=== PATIENT | female | born 1995 | race Caucasian/White ===

== ENCOUNTER 2020-10-18 17:57 | Observation (INO) | payer OTHER, SELFPAY ==
--- NOTE | 2020-10-18 17:57 | OBADM ---
This patient, Martha Yeboah, admitted to the OB room [facility] for observation. Patient/family oriented to hospital policies and general routines including ID bracelet, bed and alarms, visiting hours, pain management, procedures, bathroom and other care routines, personal items, smoking policy, room service/diet, and visiting hours. Patient/Family are encouraged to report perceived risks to care and to ask questions if they do not understand what they are told or what they should do.
[2020-10-18 18:22] VITALS: BP 121/70; PULSE 84; RESP 20; TEMP 36.9
[2020-10-18 18:43] LABS: Add Urine Microscopic? YES; Appearance Urine Cloudy (Clear); Bacteria Urine Trace /hpf; Bilirubin Urine Negative (Negative); Blood Urine Negative (Negative); Color Urine Yellow (Yellow); Glucose Urine UA Negative (Negative); Ketones Urine 1+ mg/dL (Negative); Leukocyte Esterase Ur 2+ LEU/UL (NEGATIVE); Mucus Urine Heavy /lpf; Nitrate Urine Negative (Negative); Protein Urine 1+ mg/dL (Negative); Specific Grav Ur 1.028 (1.001-1.035); Squamous Epithelial Cell Urine Many /hpf (Few); Urobilinogen Urine Negative mg/dL (<2.0)
[2020-10-18] MEDS: FAMOTIDINE 20 MG/2 ML VIAL IV PUSH (18:55)
[2020-10-18] MEDS: ONDANSETRON INJ 4 MG/2 ML VIAL IV PUSH (18:56)
[2020-10-18] MEDS: DEXTROSE 5%/LACTATED RINGERS 1,000 ML 999 ML IV CONT (18:58)
[2020-10-18 19:08] LABS: Basophils Percent Auto 0.2 % (0.2-1.2); Eosinophils Absolute Auto 0.2 K/mm3 (0-0.3); Eosinophils Percent Auto 1.9 % (0-4.4); Hematocrit 34.7 % (37.0-47.0); Hemoglobin 11.6 g/dL (12.0-15.0); Immature Granulocyte Absolute 0.02 K/mm3 (0.00-0.031); Immature Granulocyte Percent A 0.2 % (0-0.5); Lymphocytes Absolute Auto 2.11 K/mm3 (0.9-3.2); Lymphocytes Percent Auto 24.6 % (18.3-44.2); Mean Corpuscular HGB Conc 33.4 g/dl (32-36); Mean Corpuscular Hemoglobin 28.4 pg (26-34); Mean Platelet Volume 9.9 fl (7.4-10.4); Monocytes Absolute Auto 0.5 K/mm3 (0.1-0.6); Monocytes Percent Auto 5.5 % (2.6-8.5); Neutrophils Absolute Auto 5.8 K/mm3 (1.3-6.7); Neutrophils Percent Auto 67.6 % (45.5-73.1); Platelet Count Result 280 k/mm3 (150-375); Red Blood Count 4.08 M/mm3 (4.2-5.4); White Blood Count 8.6 K/mm3 (4.5-10.0)
[2020-10-18 19:29] LABS: Alanine Aminotransferase 27 U/L (4-35); Albumin Level 4.1 g/dL (3.5-5.1); Alkaline Phosphatase 75 U/L (38-126); Anion Gap 6 mmol/L (8-16); Aspartate Amino Transferase 37 U/L (14-36); Bilirubin,Total 0.4 mg/dL (0.2-1.3); Blood Urea Nitrogen 9 mg/dL (7-17); Calcium 9.1 mg/dL (8.4-10.2); Carbon Dioxide 24 mmol/L (22-30); Chloride 106 mmol/L (98-107); Estimated Glomerular Filt Rate > 60; Glucose 93 mg/dL (65-105); Potassium 4.1 mmol/L (3.4-5.0); Sodium 136 mmol/L (137-145)
[2020-10-18 19:33] VITALS: BMI 31.6
[2020-10-18] MEDS: DEXTROSE 5%/LACTATED RINGERS 1,000 ML 200 ML IV CONT (20:03)
--- NOTE | 2020-10-20 07:30 | PM.OBTRLD ---
OB - Triage/Final Diagnosis Visit Information Date of evaluation: 10/18/20 Reason for evaluation: threatened labor Comments/Additional reasons for admission: I have assessed the risk for this patient, Martha Angulo Obinna, and determined that she would benefit from observation care. Evaluation Laboratory results: Laboratory Tests 10/18/20 10/18/20 10/18/20 18:29 18:54 18:54 WBC 8.6 RBC 4.08 L Hgb 11.6 L Hct 34.7 L MCV 85.0 MCH 28.4 MCHC 33.4 RDW 14.0 Plt Count 280 MPV 9.9 Immature Gran % (Auto) 0.2 Neut % (Auto) 67.6 Lymph % (Auto) 24.6 [place] % (Auto) 5.5 Eos % (Auto) 1.9 Baso % (Auto) 0.2 Lymph # (Auto) 2.11 [place] # (Auto) 0.5 Eos # (Auto) 0.2 Baso # (Auto) 0.0 Abs Immat Gran (auto) 0.02 Absolute Neuts (auto) 5.8 Absolute Nucleated RBC 0.0 Nucleated RBC % 0.0 Sodium 136 L Potassium 4.1 Chloride 106 Carbon Dioxide 24 Anion Gap 6 L BUN 9 Creatinine 0.50 L Estim Creat Clear Calc Not Reportable Estimated GFR > 60 Glucose 93 Calcium 9.1 Total Bilirubin 0.4 AST 37 H ALT 27 Alkaline Phosphatase 75 Total Protein 8.0 Albumin 4.1 Urine Color Yellow Urine Appearance Cloudy H Urine pH 5.0 Ur Specific [place] 1.028 Urine Protein 1+ H Urine Glucose (UA) Negative Urine Ketones 1+ H Ur Blood (Man) Negative Urine Nitrate Negative Urine Bilirubin Negative Urine Urobilinogen Negative Ur Leukocyte Esterase 2+ H Urine RBC 3-5 H Urine WBC 7-9 H Ur Squamous Epith Cells Many H Urine Bacteria Trace Urine Mucus Heavy H
== END 2020-10-18 22:14 | disposition home or self-care (01) ==
PROVIDERS: Advanced Practice Midwife; Admitting Provider Obstetrics & Gynecology; Visit Provider Obstetrics & Gynecology
DX: O21.0 Mild hyperemesis gravidarum (principal); Z3A.09 9 weeks gestation of pregnancy; O47.9 False labor, unspecified
CPT/HCPCS: 36415; 80053; 81001; 85025; 96361; 96374; 96375; G0378; G0379; J0131; J2405; J7121

== ENCOUNTER 2020-11-08 10:12 | Outpatient (CLI) | payer OTHER, SELFPAY ==
--- NOTE | ~2020-11-08 | US_ITS ---
EXAMINATION: US OB <= 14 weeks fetus DATE: 11/08/2020 11:13 INDICATION: 13 weeks . Vaginal bleeding. TECHNIQUE: Real-time transabdominal obstetric ultrasound. FINDINGS: No prior studies for comparison. There is a single living fetus in variable presentation. The placenta is anterior and low-lying. cardiac activity and movement is noted with a heart rate of 149 beats per minute. T he amniotic fluid volume is subjectively normal. The following biometric data were obtained: BPD: 22mm corresponds to gestational age 13 weeks 4 days. Head circumference: 81mm corresponds to gestational age 13 weeks 3 days. Abdominal circumference: 68mm corresponds to gestational age 13 weeks 3 days. Femur length: 11mm corresponds to gestational age 13 weeks 2 days. Estimated weight: 75grams +/- 11grams.] Right ovary measures 2.5 x 2.3 x 2.2 cm and contains a 2 cm cyst. Left ovary is unremarkable. IMPRESSION: 1. Single living intrauterine in variable presentation with an estimated gestational age o f 13 weeks 3 days by current ultrasound. EDC of 05/13/2021. 2. Low-lying anterior placenta. Recommend follow-up ultrasound to ensure placental migration. Reviewed, dictated and finalized at location A. IMPRESSION: 1. Single living intrauterine in variable presentation with an estim ated gestational age of 13 weeks 3 days by current ultrasound. EDC of 05/13/2021 . 2. Low-lying anterior placenta. Recommend follow-up ultrasound to ensure placen jerry migration.
[2020-11-08 11:14] VITALS: BP 137/70; PULSE 71
[2020-11-08 11:16] VITALS: RESP 16; TEMP 36.7
--- NOTE | 2020-11-08 11:16 | PC.NURSE ---
Jencelso came to our unit stating that she had been sent over from [facility] office for an ultrasound and bloodwork. Spoke with Dr. Mcguire regarding orders, orders sent from triage nurse for outpatient labs and US. Will send patient for US now and send to lab for bloodwork.
== END 2020-11-08 11:15 | disposition home or self-care (01) ==
LOC: ANHOBOP 11:09 → ANHOBPP 11:10
PROVIDERS: Visit Provider Obstetrics & Gynecology Gynecology
DX: O20.8 Other hemorrhage in early pregnancy (principal); O44.41 Low lying placenta NOS or without hemorrhage, first trimester; Z3A.13 13 weeks gestation of pregnancy; N83.201 Unspecified ovarian cyst, right side
CPT/HCPCS: 76801; 99199

== ENCOUNTER 2020-11-08 11:30 | Outpatient (CLI) | payer OTHER, SELFPAY ==
[2020-11-08 12:14] LABS: Basophils Percent Auto 0.3 % (0.2-1.2); Eosinophils Absolute Auto 0.2 K/mm3 (0-0.3); Eosinophils Percent Auto 2.8 % (0-4.4); Hematocrit 32.7 % (37.0-47.0); Hemoglobin 10.8 g/dL (12.0-15.0); Immature Granulocyte Absolute 0.02 K/mm3 (0.00-0.031); Immature Granulocyte Percent A 0.3 % (0-0.5); Lymphocytes Absolute Auto 2.08 K/mm3 (0.9-3.2); Lymphocytes Percent Auto 26.9 % (18.3-44.2); Mean Corpuscular Hemoglobin 27.8 pg (26-34); Mean Corpuscular Volume 84.1 fl (80-100); Monocytes Absolute Auto 0.5 K/mm3 (0.1-0.6); Monocytes Percent Auto 6.3 % (2.6-8.5); Neutrophils Absolute Auto 4.9 K/mm3 (1.3-6.7); Neutrophils Percent Auto 63.4 % (45.5-73.1); Platelet Count Result 279 k/mm3 (150-375); Red Blood Count 3.89 M/mm3 (4.2-5.4); Red Cell Distribution Width 14.3 % (11.5-14.5); White Blood Count 7.7 K/mm3 (4.5-10.0)
[2020-11-08 12:30] LABS: Alanine Aminotransferase 22 U/L (4-35); Albumin Level 3.9 g/dL (3.5-5.1); Alkaline Phosphatase 82 U/L (38-126); Anion Gap 9 mmol/L (8-16); Aspartate Amino Transferase 25 U/L (14-36); Bilirubin,Total < 0.1 mg/dL (0.2-1.3); Blood Urea Nitrogen 8 mg/dL (7-17); Calcium 9.5 mg/dL (8.4-10.2); Carbon Dioxide 22 mmol/L (22-30); Chloride 107 mmol/L (98-107); Estimated Glomerular Filt Rate > 60; Glucose 91 mg/dL (65-105); Potassium 3.9 mmol/L (3.4-5.0); Sodium 138 mmol/L (137-145); Uric Acid 4.6 mg/dL (2.5-7.5)
[2020-11-08 13:21] LABS: Hemoglobin A1C 5.1 % (<5.7)
[2020-11-08 13:33] LABS: HIV 1/2 Ab P24 Ag Result Negative (Negative); Hepatitis B Surface Antigen Negative (Negative); Rubella IgG Antibody 54.6 IU/ML
[2020-11-09 07:09] LABS: Rapid Plasma Reagin Non-Reactive (NonReactive)
== END 2020-11-08 11:31 ==
PROVIDERS: Referring Provider Nurse Practitioner; Visit Provider Obstetrics & Gynecology Gynecology
DX: O09.299 Supervision of pregnancy with other poor reproductive or obstetric history, unspecified trimester (principal); O36.0190 Maternal care for anti-D [Rh] antibodies, unspecified trimester, not applicable or unspecified; Z11.4 Encounter for screening for human immunodeficiency virus [HIV]; Z3A.00 Weeks of gestation of pregnancy not specified
CPT/HCPCS: 36415; 76801; 80053; 82306; 83036; 84550; 85025; 85730; 86592; 86703; 86762; 86850; 86900; 86901; 87340; 99199; G0432

== ENCOUNTER 2020-12-07 21:22 | Observation (INO) | payer OTHER, SELFPAY ==
[2020-12-07] VITALS (10 sets, daily range): BP systolic 95–129; BP diastolic 47–78; PULSE 66–94; BMI 31.1
[2020-12-07 21:52] LABS: Add Urine Microscopic? YES; Appearance Urine Cloudy (Clear); Bacteria Urine Trace /hpf; Bilirubin Urine Negative (Negative); Blood Urine Negative (Negative); Color Urine Yellow (Yellow); Glucose Urine UA Negative (Negative); Ketones Urine 1+ mg/dL (Negative); Leukocyte Esterase Ur 2+ LEU/UL (Negative); Mucus Urine Rare /lpf; Nitrate Urine Negative (Negative); Protein Urine 1+ mg/dL (Negative); Specific Grav Ur 1.021 (1.001-1.035); Squamous Epithelial Cell Urine Moderate /hpf (Few); Urobilinogen Urine Negative mg/dL (<2.0); WBC Urine 16-20 /hpf
--- NOTE | 2020-12-07 22:02 | PC.NURSE ---
091- spoke with Dr. Mcguire- informed of pt admission. pt c/o ELIZONDO, dizziness, lower abd pain, lower back pain, urinary frequency. pt stated that she has take fiorcet twice today for the headache and hasn't gotten much relief. UA results reviewed. orders received for Ibuprofen 600mg and PO fluids. will continue to monitor and call if concerns/questions.
--- NOTE | 2020-12-07 22:08 | LDADM ---
This patient, Martha Yeboah, was admitted to [facility] on 12/07/20 at 21:22. Plans for labor, pain management and were discussed with patient. Patient/family oriented to hospital policies and general routines including ID bracelet, bed and alarms, visiting hours, pain management, procedures, bathroom and other care routines, personal items, smoking policy, room service/diet and guest tray routines, infant security routines, and visiting hours. Patient/Family are encouraged to report perceived risks to care and to ask questions if they do not understand what they are told or what they should do. See OBIX for further documentation.
[2020-12-07] MEDS: IBUPROFEN 600 MG TABLET PO (22:11)
--- NOTE | 2020-12-07 23:07 | PC.NURSE ---
0425- spoke with Dr. Mcguire- pt states that her headache is slightly better with the ibuprofen. pt still complaining of dizziness- describes it like she's rocking on a boat. order received for meclizine 50mg once. if better after medicine, may d/c home with order to case picker OTC meclizine.
[2020-12-07] MEDS: MECLIZINE HCL 25 MG TABLET 50 MG PO (23:19)
--- NOTE | 2020-12-07 23:47 | PC.NURSE ---
pt states that she is feeling better after the ibuprofen and meclizine and she is ready to d/c home. instructions on increasing oral fluids and f/u with Dr. Mcguire given.
--- NOTE | 2020-12-11 09:57 | P.PNOB_ITS ---
OB - Triage/Final Diagnosis Visit Information Reason for evaluation: other (cramping) Comments/Additional reasons for admission: I have assessed the risk for this patient, Martha Kev Yeboah, and determined that she would benefit from observation care. Evaluation Laboratory results: Laboratory Tests 12/07/20 21:40 Urine Color Yellow Urine Appearance Cloudy H Urine pH 5.0 Ur Specific [place] 1.021 Urine Protein 1+ H Urine Glucose (UA) Negative Urine Ketones 1+ H Ur Blood (Man) Negative Urine Nitrate Negative Urine Bilirubin Negative Urine Urobilinogen Negative Leukocyte Esterase Rfl 2+ H Urine RBC 6-10 H Urine WBC 16-20 H Ur Squamous Epith Cells Moderate H Urine Bacteria Trace Urine Mucus Rare
== END 2020-12-07 23:57 | disposition home or self-care (01) ==
PROVIDERS: Admitting Provider Obstetrics & Gynecology Gynecology; Visit Provider Obstetrics & Gynecology Gynecology
DX: O26.892 Other specified pregnancy related conditions, second trimester (principal); R10.9 Unspecified abdominal pain; Z3A.17 17 weeks gestation of pregnancy
CPT/HCPCS: 81001; 87086; 87088; A9270; G0378; G0379

== ENCOUNTER 2020-12-10 10:32 | Outpatient (CLI) | payer OTHER, SELFPAY ==
--- NOTE | ~2020-12-10 | US_ITS ---
EXAMINATION: US OB /maternal detail DATE: 12/10/2020 11:20 INDICATION: survey TECHNIQUE: Multiple obstetric sonographic images performed. FINDINGS: Ultrasound dated 11/08/2020 There is a single living fetus in vertex presentation. The placenta is anterior without placenta pre via. Amniotic fluid volume is normal. cardiac activity and movement is noted with a heart rate of 154 beats per minute. The following anatomy was identified as normal: 4 chamber heart 3 vessel cord cord insertion kidneys urinary bladder stomach spine diaphragm ventricles cisterna magna cerebellum The lip and nose are not visualized. The following biometric data were obtained: BPD: 38mm corresponds to gestational age 17 weeks 5 days. Head circumference: 146 mm corresponds to gestational age 17 weeks 5 days. Abdominal circumference: 119 mm corresponds to gestational age 17 weeks 4 days. Femur length: 26 mm corresponds to gestational age 17 weeks 5 days. Head circumference to abdominal circumference ratio: 1.23 (normal range for expected gestational age is 1.08-1.28). Estimated weight: 205 grams +/- 31 grams using Hadlock method. IMPRESSION: 1: Single living intrauterine with an estimated gestational age of 18weeks 0days by initial ultrasound measurements, with an EDC of 05/13/2021 in vertex presentation. 2. Normal survey. Reviewed, dictated and finalized at location A. IMPRESSION: 1: Single living intrauterine with an estimated gestational age of 18 weeks 0days by initial ultrasound measurements, with an EDC of 05/13/2021 in taina taylor presentation. 2. Normal survey.
== END 2020-12-10 10:33 | disposition home or self-care (01) ==
PROVIDERS: Visit Provider Obstetrics & Gynecology Gynecology
DX: O44.12 Complete placenta previa with hemorrhage, second trimester (principal); Z3A.18 18 weeks gestation of pregnancy
CPT/HCPCS: 76805

== ENCOUNTER 2020-12-19 12:23 | Emergency (ER) | payer OTHER, SELFPAY ==
[2020-12-19] VITALS (7 sets, daily range): BP systolic 106–122; BP diastolic 56–78; PULSE 76–103; RESP 16–23; TEMP 36.6; O2SAT 98–100
--- NOTE | 2020-12-19 12:34 | ECG_ITS ---
Measurements Intervals [place] Rate: 80 P: 30 ND: 170 QRS: 47 QRSD: 81 T: 35 QT: 355 QTc: 411 Interpretive Statements SINUS RHYTHM BASELINE ARTIFACT- V5 NORMAL ECG Electronically Signed On 12-19-2020 13:24:36 CDT by Flynn Islas D.O.
[2020-12-19 13:19] LABS: Basophils Percent Auto 0.3 % (0.2-1.2); Eosinophils Absolute Auto 0.2 K/mm3 (0-0.3); Eosinophils Percent Auto 1.6 % (0-4.4); Hematocrit 31.3 % (37.0-47.0); Hemoglobin 10.2 g/dL (12.0-15.0); Immature Granulocyte Absolute 0.04 K/mm3 (0.00-0.031); Immature Granulocyte Percent A 0.4 % (0-0.5); Immature Platelet Fraction Pct 2.2 % (0.9-11.2); Lymphocytes Absolute Auto 1.77 K/mm3 (0.9-3.2); Lymphocytes Percent Auto 18.1 % (18.3-44.2); Mean Corpuscular HGB Conc 32.6 g/dl (32-36); Mean Corpuscular Hemoglobin 28.6 pg (26-34); Mean Corpuscular Volume 87.7 fl (80-100); Mean Platelet Volume 9.6 fl (7.4-10.4); Monocytes Absolute Auto 0.6 K/mm3 (0.1-0.6); Monocytes Percent Auto 5.6 % (2.6-8.5); Neutrophils Absolute Auto 7.2 K/mm3 (1.3-6.7); Platelet Count Result 282 k/mm3 (150-375); Red Blood Count 3.57 M/mm3 (4.2-5.4); Red Cell Distribution Width 14.6 % (11.5-14.5); White Blood Count 9.8 K/mm3 (4.5-10.0)
[2020-12-19 13:27] LABS: Anion Gap 4 mmol/L (8-16); Blood Urea Nitrogen 7 mg/dL (7-17); Calcium 9.4 mg/dL (8.4-10.2); Carbon Dioxide 26 mmol/L (22-30); Chloride 107 mmol/L (98-107); Estimated CRCL calculation 202 ml/min; Estimated Glomerular Filt Rate > 60; Glucose 85 mg/dL (65-105); Potassium 3.8 mmol/L (3.4-5.0); Sodium 137 mmol/L (137-145)
[2020-12-19] MEDS: SODIUM CHLORIDE 0.9% IV 1,000 ML 999 ML IV CONT (13:47)
--- NOTE | 2020-12-19 14:26 | ED.GENADULT ---
HPI - General Adult General Chief complaint: Syncope Stated complaint: headache, syncope, 19 wks Time Seen by Provider: 12/19/20 12:39 History of Present Illness HPI narrative: Patient is a 25-year-old female who presents ER with dizziness and syncope. Reports this is been a recurrent issue since June 2020. She reports she then became and they have been unable to work it up. She sees Dr. Shaver. Patient had an episode of dizziness yesterday while at [facility] working and was seen in the ER. She was diagnosed with a UTI and prescribed antibiotics and then given some IV fluids. She reports she had recurrence of symptoms today while sitting in a car. No racing the heart or chest pain. Reports she gets hot and flushed when this happens. Related Data Home Medications Medication Instructions Recorded Confirmed 1 tablet PO DAILY 10/18/20 10/18/20 Unisom (diphenhydramine) 1 tablet PO HS PRN 10/18/20 10/18/20 sertraline [Zoloft] 50 mg PO DAILY 10/18/20 10/18/20 vitamin B6-vitamin E-magnesium 1 tablet PO HS PRN 10/18/20 10/18/20 dextroamphetamine-amphetamine 12/19/20 12/19/20 Allergies Allergy/AdvReac Type Severity Reaction Status Date / Time No Known Allergies Allergy Verified 12/19/20 13:12 Review of Systems Review of Systems: All systems reviewed & are unremarkable except as noted in HPI and below Constitutional: Constitutional: Denies chills, Denies fever(s) and Denies weakness Cardiovascular: Cardiovascular: Denies chest pain, Denies rapid heart rate and Denies radiating jaw, neck or arm pain Genitourinary: Genitourinary: Denies nocturia and Denies dysuria Neurologic: Reports syncope, Reports headache(s) (Chronic), Denies focal weakness and Denies numbness PMFSH Past Medical History Medical History (Updated 12/19/20 @ 15:53 by Daryn Hayes MD) ADHD GERD (gastroesophageal reflux disease) Surgical History Surgical History (Updated 12/19/20 @ 14:28 by Daryn Hayes MD) No pertinent past surgical history Social History Social History (Updated 12/19/20 @ 14:28 by Daryn Hayes MD) Gender identity (if verbalized by the patient): Female Exam Narrative: Exam Narrative: GENERAL: Well-appearing, well-nourished, and in no acute distress. HEAD: Normocephalic, atraumatic. EYES: PERRL and EOMI. ENT: TMs normal bilaterally. CHEST: Clear to auscultation. No respiratory distress. HEART: Regular rate and rhythm. Normal peripheral pulses. ABDOMEN: Soft, nontender, nondistended. EXTREMITIES: Normal range of motion. No edema. NEURO: Alert and oriented x3. PSYCH: Normal mood and affect. Course Course Emergency Course: Unremarkable evaluation. Encouraged to continue antibiotics at home. Follow-up with her client solutions specialist. May require outpatient Holter monitor, but she does seem to be orthostatic as her heart rate elevates significantly. Vital Signs Vital signs: Vital Signs Temperature 97.8 F 12/19/20 12:34 Pulse Rate 80 12/19/20 12:34 Respiratory Rate 23 H 12/19/20 12:34 Blood Pressure 117/68 12/19/20 12:34 Pulse Oximetry 100 12/19/20 12:34 Temperature 97.8 F 12/19/20 12:34 Pulse Rate 82 12/19/20 14:56 Respiratory Rate 18 12/19/20 14:56 Blood Pressure 110/73 12/19/20 14:56 Pulse Oximetry 98 12/19/20 14:56 Medical Decision Making Vital Signs Vital Signs: Vital Signs Temperature 97.8 F 12/19/20 12:34 Pulse Rate 80 12/19/20 12:34 Respiratory Rate 23 H 12/19/20 12:34 Blood Pressure 117/68 12/19/20 12:34 Pulse Oximetry 100 12/19/20 12:34 Temperature 97.8 F 12/19/20 12:34 Pulse Rate 82 12/19/20 14:56 Respiratory Rate 18 12/19/20 14:56 Blood Pressure 110/73 12/19/20 14:56 Pulse Oximetry 98 12/19/20 14:56 Lab Data Result diagrams: 12/19/20 13:09 12/19/20 13:09 Labs: Lab Results 12/19/20 12/19/20 Range/Units 13:09 13:09 WBC 9.8 (4.5-1
== END 2020-12-19 16:32 | disposition home or self-care (01) ==
PROVIDERS: Emergency Provider Emergency Medicine; PCP Obstetrics & Gynecology Gynecology
DX: R55 Syncope and collapse (principal); F90.9 Attention-deficit hyperactivity disorder, unspecified type; K21.9 Gastro-esophageal reflux disease without esophagitis
CPT/HCPCS: 36415; 80048; 81025; 85025; 85055; 93005; 96360; 99283; J7030

== ENCOUNTER 2021-01-04 10:09 | Observation (INO) | payer OTHER, SELFPAY ==
[2021-01-04 10:35] VITALS: BMI 31.8
--- NOTE | 2021-01-04 10:55 | PC.NURSE ---
Dr Mcguire notified of Adm C/O R side abd pain. Orders received for labs and an US if patient has NPO. If not NPO may schedule outpatient testing if WBC's are WNL.
[2021-01-04 11:29] LABS: Basophils Percent Auto 0.5 % (0.2-1.2); Eosinophils Absolute Auto 0.2 K/mm3 (0-0.3); Eosinophils Percent Auto 2.2 % (0-4.4); Hematocrit 30.2 % (37.0-47.0); Immature Granulocyte Absolute 0.05 K/mm3 (0.00-0.031); Immature Granulocyte Percent A 0.6 % (0-0.5); Lymphocytes Absolute Auto 1.94 K/mm3 (0.9-3.2); Lymphocytes Percent Auto 22.9 % (18.3-44.2); Mean Corpuscular HGB Conc 33.1 g/dl (32-36); Mean Corpuscular Hemoglobin 28.4 pg (26-34); Mean Corpuscular Volume 85.8 fl (80-100); Mean Platelet Volume 9.1 fl (7.4-10.4); Monocytes Absolute Auto 0.5 K/mm3 (0.1-0.6); Monocytes Percent Auto 5.8 % (2.6-8.5); Neutrophils Absolute Auto 5.8 K/mm3 (1.3-6.7); Platelet Count Result 266 k/mm3 (150-375); Red Blood Count 3.52 M/mm3 (4.2-5.4); Red Cell Distribution Width 14.6 % (11.5-14.5); White Blood Count 8.5 K/mm3 (4.5-10.0)
[2021-01-04 12:23] LABS: Alanine Aminotransferase 20 U/L (4-35); Albumin Level 3.6 g/dL (3.5-5.1); Alkaline Phosphatase 86 U/L (38-126); Anion Gap 4 mmol/L (8-16); Aspartate Amino Transferase 26 U/L (14-36); Bilirubin,Total < 0.1 mg/dL (0.2-1.3); Blood Urea Nitrogen 8 mg/dL (7-17); Calcium 8.9 mg/dL (8.4-10.2); Carbon Dioxide 25 mmol/L (22-30); Chloride 107 mmol/L (98-107); Estimated Glomerular Filt Rate > 60; Glucose 88 mg/dL (65-105); Potassium 4.1 mmol/L (3.4-5.0); Sodium 136 mmol/L (137-145)
--- NOTE | 2021-01-04 13:00 | PC.NURSE ---
Discussed pain level with patient. States that its sill just a dull ache and denies need for additional medication for pain.
--- NOTE | 2021-01-04 14:29 | PC.NURSE ---
Dr Mcguire on unit, discussed labs and US, will schedule US outpatient. OK to nd home.
--- NOTE | 2021-01-08 08:53 | P.PNOB_ITS ---
OB - Triage/Final Diagnosis Visit Information Comments/Additional reasons for admission: I have assessed the risk for this patient, Martha Yeboah, and determined that she would benefit from observation care. Evaluation Laboratory results: Laboratory Tests 01/04/21 01/04/21 11:21 11:21 WBC 8.5 RBC 3.52 L Hgb 10.0 L Hct 30.2 L MCV 85.8 MCH 28.4 MCHC 33.1 RDW 14.6 H Plt Count 266 MPV 9.1 Immature Gran % (Auto) 0.6 H Neut % (Auto) 68.0 Lymph % (Auto) 22.9 [place] % (Auto) 5.8 Eos % (Auto) 2.2 Baso % (Auto) 0.5 Lymph # (Auto) 1.94 [place] # (Auto) 0.5 Eos # (Auto) 0.2 Baso # (Auto) 0.0 Abs Immat Gran (auto) 0.05 H Absolute Neuts (auto) 5.8 Absolute Nucleated RBC 0.0 Nucleated RBC % 0.0 Sodium 136 L Potassium 4.1 Chloride 107 Carbon Dioxide 25 Anion Gap 4 L BUN 8 Creatinine 0.50 L Estim Creat Clear Calc Not Reportable Estimated GFR > 60 Glucose 88 Calcium 8.9 Total Bilirubin < 0.1 L AST 26 ALT 20 Alkaline Phosphatase 86 Total Protein 7.0 Albumin 3.6 Final Diagnosis (1) Right upper quadrant abdominal pain: Code(s): R10.11 - Right upper quadrant pain Status: Acute
== END 2021-01-04 13:26 | disposition home or self-care (01) ==
PROVIDERS: Admitting Provider Obstetrics & Gynecology Gynecology; PCP Nurse Practitioner Family; Visit Provider Obstetrics & Gynecology Gynecology
DX: O26.899 Other specified pregnancy related conditions, unspecified trimester (principal); R10.11 Right upper quadrant pain; Z3A.00 Weeks of gestation of pregnancy not specified
CPT/HCPCS: 36415; 80053; 85025; G0378; G0379

== ENCOUNTER 2021-01-05 09:24 | Outpatient (CLI) | payer OTHER, SELFPAY ==
--- NOTE | ~2021-01-05 | US_ITS ---
EXAMINATION: US_ABDRLQ_US DATE: 01/05/2021 11:10 INDICATION: Right lower quadrant abdominal pain. TECHNIQUE: Multiple grayscale and Doppler ultrasound images of the abdomen were obtained. COMPARISON: None FINDINGS: A survey of the right lower quadrant is unremarkable. The appendix is not identified. IMPRESSION: 1. Appendix not identified. If there is clinical concern for appendicitis, consider MRI. Reviewed, dictated and finalized at location A. IMPRESSION: 1. Appendix not identified. If there is clinical concern for appendicitis, cons ider MRI.
--- NOTE | ~2021-01-05 | US_ITS ---
EXAMINATION: US right upper quadrant DATE: 01/05/2021 11:10 INDICATION: Right abdominal pain. TECHNIQUE: Multiple grayscale and Doppler ultrasound images of the abdomen were obtained. COMPARISON: None FINDINGS: The visualized portions of the head and body of the pancreas are normal. There is diffuse h epatic steatosis. No liver surface nodularity. There is normal flow in main portal vein. Right kidney is normal. No right-sided hydronephrosis. The gallbladder is normal in size. No gallstones or gallbl adder wall thickening. There was no sonographic Castano sign. The common duct is normal and measures 2 mm. IMPRESSION: 1. Diffuse hepatic steatosis. Reviewed, dictated and finalized at location A.
== END 2021-01-05 09:25 | disposition home or self-care (01) ==
PROVIDERS: PCP Nurse Practitioner Family; Visit Provider Obstetrics & Gynecology Gynecology
DX: R10.9 Unspecified abdominal pain (principal); K76.0 Fatty (change of) liver, not elsewhere classified
CPT/HCPCS: 76705

== ENCOUNTER 2021-01-07 09:42 | Outpatient (CLI) | payer OTHER, SELFPAY ==
--- NOTE | ~2021-01-07 | US_ITS ---
EXAMINATION: US OB follow up DATE: 01/07/2021 10:50 INDICATION: Second trimester anatomy follow-up, prior low-lying placenta TECHNIQUE: Real-time ultrasound of the pelvis was performed. The interpreting radiologist was not pre sent for the study. COMPARISON: 12/10/2020 FINDINGS: There is a single living fetus in breech presentation. The placenta is anterior and 6.0 cm from the internal cervical os. cardiac activity and movement are noted. The lips and nose appear normal. heart rate is 152 beats per minute (bpm). The amniotic fluid index is subjectiv michelle normal. The following biometric data were obtained: Biparietal diameter (BPD): 5.0 cm; head circumference (HC): 19.3 cm; abdominal circumference (AC): 15 .7 cm; femur length (FL): 3.7 cm. These measurements are concordant. Estimated weight is 418 g +/- 62 g, which correlates with the 13th percentile when 05/12/2021 is used as estimated date of delivery. As single measurements, these parameters are each equal to the following estimated gestational ages w ith ranges of +/- 2 standard deviations: BPD: 21 weeks 2 days +/- 1 weeks 5 days. HC: 21 weeks 4 days +/- 1 weeks 3 days. AC: 20 weeks 6 days +/- 2 weeks 0 days. FL: 21 weeks 6 days +/- 1 weeks 6 days. estimated gestational age based solely on measurements from this exam is 21 weeks 3 days +/- 1 weeks 3 days. IMPRESSION: 1. Single living fetus in breech presentation. 2. Estimated weight is 418 g +/- 62 g, which correlates with the 13th percentile when 05/12/2021 is used as estimated date of delivery. 3. Normal-appearing lips and nose. Reviewed, dictated and finalized at location A. IMPRESSION: 1. Single living fetus in breech presentation. 2. Estimated weight is 418 g +/- 62 g, which correlates with the 13th per centile when 05/12/2021 is used as estimated date of delivery. 3. Normal-appearing lips and nose.
== END 2021-01-07 09:43 | disposition home or self-care (01) ==
PROVIDERS: PCP Nurse Practitioner Family; Visit Provider Obstetrics & Gynecology Gynecology
DX: Z34.92 Encounter for supervision of normal pregnancy, unspecified, second trimester (principal); Z3A.21 21 weeks gestation of pregnancy
CPT/HCPCS: 76816

== ENCOUNTER 2021-01-11 14:12 | Emergency (ER) | payer OTHER, SELFPAY ==
--- NOTE | ~2021-01-11 | CT_ITS ---
EXAMINATION: CT brain wo con DATE: 01/11/2021 15:27 INDICATION: Headache. TECHNIQUE: Computed tomography (CT) of the head was performed without intravenous contrast. The mA wa s adjusted according to patient size. Iterative reconstruction technique was employed. The dose-lengt h product was 529.67 mGy-cm. COMPARISON: None FINDINGS: There is no intracranial hemorrhage, acute infarction, or abnormal intracranial mass lesion . The ventricles are normal in size. The orbits are normal. There is mild mucosal thickening in the p aranasal sinuses. The mastoid air cells are normal. IMPRESSION: 1. Normal brain. Reviewed, dictated and finalized at location B. IMPRESSION: 1. Normal brain.
[2021-01-11 14:51] VITALS: BP 111/75; PULSE 92; RESP 18; TEMP 36.5; O2SAT 99
--- NOTE | 2021-01-11 15:04 | ED.HA ---
HPI - Headache General Chief Complaint: Headache Stated Complaint: headache Time Seen by Provider: 01/11/21 14:49 Source: patient and RN notes reviewed Mode of arrival: ambulatory Limitations: no limitations History of Present Illness HPI Narrative: Patient is 25 years old white female presented to the ED with left frontal headache started prior to arrival to the emergency room. Intermittent palpitation for the last 2 to 3 months, heart rate can go up to 160 bpm. Patient wAS SEEN her compliance advisor today for Holter monitor placement, immediately prior to the Holter monitor placement ,patient developed palpitation with fast heartbeat followed by left frontal headache and blurred vision. Patient reported history of migraine headache since April 2020, today headache is a little bit different than her regular migraine. Patient reported that the frequency of her migraine headache getting worse since she became , 1-2 times a week. 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 Patient reports a lot of stress lately Related Data Home Medications Medication Instructions Recorded Confirmed 1 tablet PO DAILY 10/18/20 01/04/21 Unisom (diphenhydramine) 1 tablet PO HS PRN 10/18/20 01/04/21 sertraline [Zoloft] 50 mg PO DAILY 10/18/20 01/04/21 vitamin B6-vitamin E-magnesium 1 tablet PO HS PRN 10/18/20 01/04/21 Allergies Allergy/AdvReac Type Severity Reaction Status Date / Time No Known Allergies Allergy Verified 12/19/20 13:12 Review of Systems Review of Systems: Narrative: CONSTITUTIONAL: Denies fever, chills, or sweats. EYES: Denies visual changes, redness, or discharge. ENT: Denies rhinorrhea, congestion, sore throat, or otalgia. CARDIOVASCULAR: Denies chest pain, palpitations, or edema. RESPIRATORY: Denies cough or dyspnea. GASTROINTESTINAL: Denies abdominal pain, nausea, vomiting, or diarrhea. GENITOURINARY: Denies dysuria or hematuria. SKIN: Denies rash or itching. MUSCULOSKELETAL: Denies back pain, joint pain, or myalgia. NEUROLOGIC: Denies headache, numbness, or weakness. PSYCHIATRIC: Denies anxiety or depression. [facility] Past Medical History Medical History ADHD GERD (gastroesophageal reflux disease) Surgical History Surgical History No pertinent past surgical history Social History Social History Gender identity (if verbalized by the patient): Female Exam Narrative: Exam Narrative: General appearance: Well-developed, well-nourished Skin: Normal color Head: Normocephalic, nontraumatic Eyes: Clear conjunctiva ENT: Oropharynx normal, ears normal, nose normal Neck: Supple, nontender Chest and respiratory: Airway patent, no respiratory distress, no accessory muscle use Heart: Regular rate/rhythm Abdomen: Soft, nontender, no organomegaly, quiet bowel sounds Vascular: Normal peripheral pulses, normal capillary refill. Musculoskeletal: Normal range of motion, nontender back Neurologic: Alert and oriented ?3, STUDENT MINISTRIES DIRECTOR is normal as tested, no gross motor deficit Course Course Emergency Course: Stable Reevaluation(s) Reevaluation #1: Patient headache is improving. At the time of discharge patient requested to be transferred to to be transferred because the possibility of preeclampsia. Patient is telling me that she had preeclampsia in her second . Patient is 3, para 2, 0. Patient also is telling me that her IMPORT/EXPORT CLERK is Dr. Mcguire who have trouble with her and she
[2021-01-11] MEDS: MORPHINE SULFATE (*CRX) 4 MG/ML INJ IV PUSH (15:11)
[2021-01-11] MEDS: ONDANSETRON INJ 4 MG/2 ML VIAL IV PUSH (15:11)
--- NOTE | 2021-01-11 16:00 | PC.NURSE ---
this RN into pts room. Pt states that she would like to be transferred to [place] because she feels as though the DrBenitez is blowing her off . Informed pt that has ordered blood and urine tests to rule out Preeclampsia ( pt states she believes she has this). Pt states i dont want those test I want to be transferred to [place]. Informed Charge nurse Mirna of this.
--- NOTE | 2021-01-11 16:19 | PC.NURSE ---
This Rn into pts room. Pt states that she wanting to be transferred to [place]. I informed pt that there is no reason to be transferred and pt states well i want to go there . Pt then requested to speak with Rony Hansen and i cant speak with him i will get my textile broker involved . Informed pt that I am sure Rony has left for the day and pt responded with well he has a phone number . Informed charge nurse Mirna of this.
[2021-01-11 16:52] VITALS: BP 126/72; PULSE 78; RESP 18; O2SAT 100
--- NOTE | 2021-01-11 17:22 | PC.NURSE ---
called phleb b/c hard draw
[2021-01-11 18:57] LABS: Add Urine Microscopic? YES; Appearance Urine Cloudy (Clear); Bacteria Urine 1+ /hpf; Bilirubin Urine Negative (Negative); Blood Urine Negative (Negative); Color Urine Yellow (Yellow); Glucose Urine UA Negative (Negative); Ketones Urine 2+ mg/dL (Negative); Leukocyte Esterase Ur 2+ LEU/UL (Negative); Mucus Urine Few /lpf; Nitrate Urine Negative (Negative); Protein Urine Negative (Negative); Specific Grav Ur 1.012 (1.001-1.035); Squamous Epithelial Cell Urine Few /hpf (Few); Urobilinogen Urine Negative mg/dL (<2.0)
[2021-01-11 19:18] LABS: Basophils Percent Auto 0.3 % (0.2-1.2); Eosinophils Absolute Auto 0.3 K/mm3 (0-0.3); Eosinophils Percent Auto 2.8 % (0-4.4); Hematocrit 30.7 % (37.0-47.0); Immature Granulocyte Absolute 0.03 K/mm3 (0.00-0.031); Immature Granulocyte Percent A 0.3 % (0-0.5); Lymphocytes Absolute Auto 1.79 K/mm3 (0.9-3.2); Lymphocytes Percent Auto 18.7 % (18.3-44.2); Mean Corpuscular HGB Conc 32.6 g/dl (32-36); Mean Corpuscular Hemoglobin 28.7 pg (26-34); Mean Corpuscular Volume 88.2 fl (80-100); Monocytes Absolute Auto 0.5 K/mm3 (0.1-0.6); Monocytes Percent Auto 5.1 % (2.6-8.5); Neutrophils Percent Auto 72.8 % (45.5-73.1); Platelet Count Result 289 k/mm3 (150-375); Red Blood Count 3.48 M/mm3 (4.2-5.4); Red Cell Distribution Width 14.8 % (11.5-14.5); White Blood Count 9.6 K/mm3 (4.5-10.0)
[2021-01-11 19:27] LABS: Alanine Aminotransferase 21 U/L (4-35); Albumin Level 3.8 g/dL (3.5-5.1); Alkaline Phosphatase 94 U/L (38-126); Anion Gap 7 mmol/L (8-16); Aspartate Amino Transferase 32 U/L (14-36); Bilirubin,Total 0.2 mg/dL (0.2-1.3); Blood Urea Nitrogen 5 mg/dL (7-17); Calcium 8.6 mg/dL (8.4-10.2); Carbon Dioxide 24 mmol/L (22-30); Chloride 105 mmol/L (98-107); Estimated CRCL calculation 201 ml/min; Estimated Glomerular Filt Rate > 60; Glucose 80 mg/dL (65-105); Lipase 71 U/L (23-300); Potassium 3.7 mmol/L (3.4-5.0); Sodium 136 mmol/L (137-145)
[2021-01-11 19:28] LABS: Uric Acid 5.3 mg/dL (2.5-7.5)
[2021-01-11 19:32] LABS: Prothrombin Time 13.8 Seconds (11.1-14.7)
[2021-01-11 19:33] LABS: Partial Thromboplastin Time 28.1 SECONDS (22.3-36.8)
[2021-01-11 20:59] VITALS: BP 128/75; PULSE 78; RESP 16; TEMP 36.4; O2SAT 100
== END 2021-01-11 20:35 | disposition home or self-care (01) ==
PROVIDERS: Emergency Medicine; Emergency Provider Emergency Medicine; PCP Nurse Practitioner Family
DX: R51.9 Headache, unspecified (principal); R00.2 Palpitations; F90.9 Attention-deficit hyperactivity disorder, unspecified type; K21.9 Gastro-esophageal reflux disease without esophagitis
CPT/HCPCS: 36415; 70450; 80053; 81001; 83690; 84550; 85025; 85610; 85730; 96374; 96375; 99284; J2270; J2405

== ENCOUNTER 2021-06-11 13:46 | Outpatient (RCR) | payer OTHER, SELFPAY ==
--- NOTE | 2021-06-11 15:00 | PC.NURSE ---
IN 1300 [id number] HISTORY: Pt. delivered at [facility] at 37 3/7 weeks. had no complications after delivery. Mother had no complications after delivery. Mother reports she has high anxiety and adult onset ADHD. Mother and discharged successfully. is now 6 weeks old. Infant appears to be well cared for. last seen/will be seen by ICP within the last week as reported by mother. Mother reports: Currently at 6 wets per day and 2-3 yellow watery/seedy stools per day. weight: 8#3 Discharge weight: unknown Last Weight: 9#9 at 5+ weeks Mother states she has returned to school time study technologist at 4 weeks and pumps during the day and and will put to breast as much as she can when with infant. Mother reports nipple tenderness at times with misshaped nipples after feedings. Mother reports infant eagerly latches for feedings and has a loud clicking while nursing and is fussy while feeding and very gassy after. When questioned mother does not feel infant is as fussy after bottle feedings. Mother pumps every 2-3 hours when away from infant using a double electric pump. Mother currently is pumping 6-7 oz per session, infant is taking 3-4 oz per feeding. Mother wishes: Resolve nipple tenderness and fussiness and clicking while at breast. OBSERVATION: Tongue is able to move tongue freely past gum ridge, both lips flange easily. Mother has everted nipples with skin intact slight redness no blisters, scabbing or abrasions noted. Mother puts to breast in cradle positioning, latches eagerly with a slightly shallow latch. Within a few seconds of nursing clicking is noted and pulls back to a shallow latch. Quickly infant begins to cough and gulp with feeding. Suggested mother remove from breast and allow milk to flow for 1-2 minutes then return infant to breast. Reviewed positioning/alignment in cross cradle, holding breast in ?U? hold and guided asymmetrical latch on. Reviewed rational for each. Infant able to latch correctly within a few attempts. Infant nursed eagerly with steady draws and frequent swallowing noted, some pausing noted. Reviewed signs of a correct latch, effective nursing and suck swallow ratio. would slip to shallow latch causing tenderness. Demonstrated how to adjust latch more deeply while feeding if needed. Mother reports she can feel the difference in latch with no tenderness. Nipple care reviewed of lanolin after feedings, warm compresses as needed. Discussed heavy let down and effects on , with pulling back to shallow latch to stop milk flow and possible cause for watery stools, fussiness and gassiness. Reviewed the balance of fore milk and hind milk. Discussed mother is pumping 6-7 oz every 2-3 hours and is feeding 3-4 every 3-4 hours. Discussed ways to decrease supply, mother states she does not want to decrease supply with current school/work schedule and need for EBM for bottle feedings. Advised mother to use [place] or to pump slightly on breast before feeding to illicit let down to aid in maintaining deep latch, slowing suck swallow for less clicking, fussiness and gassiness. PLAN: Mother will follow above feeding plan. Mother will call with further questions or concerns. I
== END 2021-08-30 13:56 | disposition home or self-care (01) ==
LOC: ANHOBOP 13:46
PROVIDERS: PCP Nurse Practitioner Family; Visit Provider Pediatrics
DX: Z39.1 Encounter for care and examination of lactating mother (principal)
CPT/HCPCS: 99212; G0463

== ENCOUNTER 2021-06-12 20:09 | Emergency (ER) | payer OTHER, SELFPAY ==
[2021-06-12 20:15] VITALS: BP 124/83; PULSE 110; RESP 20; TEMP 36.8; O2SAT 97
--- NOTE | 2021-06-12 20:21 | ED.GIBLEED ---
HPI - GI Bleed General Chief complaint: GI Bleed Stated complaint: rectal bleeding Source: patient and RN notes reviewed Mode of arrival: ambulatory Limitations: no limitations History of Present Illness HPI Narrative: Patient is 7 weeks . Said she does have a history of rectal fissures in the past and sometimes the scar tissue will bleed. complaint: blood on toilet paper and blood streaked stool Onset (ago): day(s) (2) Pain Consistency: intermittent Severity: moderate Relieving factors: none Exacerbating factors: bowel movement Context: hemorrhoids Associated symptoms: easy bruising Treatments Prior to Arrival: none Related Data Home Medications Medication Instructions Recorded Confirmed 1 tablet PO DAILY 10/18/20 06/12/21 vitamin B6-vitamin E-magnesium 1 tablet PO HS PRN 10/18/20 06/12/21 dextroamphetamine-amphetamine 15 mg PO BID 06/12/21 06/12/21 fluoxetine 20 mg PO DAILY 06/12/21 06/12/21 Allergies Allergy/AdvReac Type Severity Reaction Status Date / Time No Known Allergies Allergy Verified 12/19/20 13:12 Review of Systems Review of Systems: All systems reviewed & are unremarkable except as noted in HPI and below Constitutional: Constitutional: Denies chills and Denies fever(s) ENT: Denies epistaxis Cardiovascular: Cardiovascular: Denies chest pain Respiratory: Respiratory: Denies dyspnea Gastrointestinal: Gastrointestinal: Denies nausea and Denies vomiting PMFSH Past Medical History Medical History ADHD GERD (gastroesophageal reflux disease) Surgical History Surgical History No pertinent past surgical history Social History Social History (Updated 06/12/21 @ 21:08 by Negrito Batista MD) Living arrangements: with family Gender identity (if verbalized by the patient): Female Sexual Orientation (if Verbalized by the Patient): Straight or Heterosexual Exam Const: General: healthy appearing and no acute distress Nutritional Appearance: well nourished Orientation/consciousness: patient oriented x3 Other: Female nurse in room during examination. HENMT: Head: normal to inspection Ears: external ears normal Mouth: Yes moist mucous membranes Eyes: Conjunctivae: conjunctivae normal Pupils: Equal, round and reactive pupils present EOM: EOMs intact bilaterally Neck: Neck: normal visual inspection Resp: Effort & Inspection: normal respiratory effort Auscultation: clear to auscultation bilaterally Cardio: Rate: regular rate Rhythm: regular rhythm GI: GI Palp: Yes Soft to palpation and No Tenderness to palpation present (GI) Auscultation: normal bowel sounds Rectal Exam: heme positive stool and Anal fissure(s) present Back/Spine/Pelvis: Cervical Spine: cervical ROM normal Thoracic/Lumbar Spine: thoraco-lumbar ROM normal Skin: General skin exam: normal color and ecchymosis (scattered small) Rashes: no rashes Neuro: General: patient oriented x3, moves all extremities, no meningeal signs and no focal motor deficits Speech: normal speech Gait exam (Neuro): Normal gait present Motor exam (neuro): 5/5 motor strength present throughout Extrem: General: normal to inspection and no clubbing, cyanosis or edema Psych: Appearance: grossly normal and well kempt Mental Status: mental status grossly normal Affect: normal affect Attitude: cooperative Thought content: Yes Normal thought content present Course Vital Signs Vital signs: Vital Signs Temperature 36.8 C 06/12/21 20:15 Pulse Rate 110 H 06/12/21 20:15 Respiratory Rate 20 06/12/21 20:15 Blood Pressure 124/83 06/12/21 20:15 Pulse Oximetry 97 06/12/21 20:15 Temperature 36.6 C 06/12/21 21:18 Pulse Rate 94 06/12/21 21:18 Respiratory Rate 18 06/12/21 21:18 Blood Pressure 120/78 06/12/21 21:18 Pulse Oximetry 98 06/12/21 21:18 MDM - GI Bleed Lab Data Resu
[2021-06-12 20:44] LABS: Basophils Absolute Auto 0.04 K/mm3 (0.00-0.10); Basophils Percent Auto 0.4 % (0.0-1.0); Eosinophils Absolute Auto 0.43 K/mm3 (0.02-0.50); Eosinophils Percent Auto 4.3 % (1.0-6.0); Hematocrit 37.2 % (35.0-49.0); Hemoglobin 12.1 g/dL (12.0-15.0); Immature Granulocyte Absolute 0.03 K/mm3 (0.00-0.00); Immature Granulocyte Percent A 0.3 % (0.0-0.0); Lymphocytes Absolute Auto 2.59 K/mm3 (1.10-4.50); Lymphocytes Percent Auto 26.2 % (18.0-42.0); Mean Corpuscular HGB Conc 32.5 g/dL (32.0-36.0); Mean Corpuscular Hemoglobin 28.6 pg (27.0-31.0); Mean Corpuscular Volume 87.9 fL (78.0-102.0); Mean Platelet Volume 8.2 fl (9.2-11.8); Monocytes Absolute Auto 0.65 K/mm3 (0.10-0.90); Monocytes Percent Auto 6.6 % (2.0-11.0); Neutrophils Absolute Auto 6.2 K/mm3 (1.7-7.2); Neutrophils Percent Auto 62.2 % (50.0-70.0); Platelet Count Result 341 K/mm3 (150-420); Red Blood Count 4.23 M/mm3 (4.20-5.40); White Blood Count 9.9 K/mm3 (4.8-10.8)
[2021-06-12 20:53] LABS: Occult Blood Positive (Negative)
[2021-06-12 21:01] LABS: INR 0.9
[2021-06-12 21:02] LABS: Alanine Aminotransferase 51 U/L (14-59); Albumin Level 3.7 g/dL (3.4-5.0); Alkaline Phosphatase 139 U/L (46-116); Anion Gap 14 mmol/L (8-16); Aspartate Amino Transferase < 10 U/L (15-37); Bilirubin,Total 0.2 mg/dL (0.00-1.00); Blood Urea Nitrogen 30 mg/dL (7-18); Calcium 8.6 mg/dL (8.5-10.1); Carbon Dioxide 25 mmol/L (21-32); Chloride 102 mmol/L (98-108); Estimated Glomerular Filt Rate > 60; Glucose 113 mg/dL (70-99); Osmolality Calculated 299 mOsm/kg (285-295); Potassium 4.4 mmol/L (3.5-5.1); Sodium 141 mmol/L (136-145); Total Protein 8.2 g/dL (6.4-8.2)
[2021-06-12 21:03] LABS: Lactate Dehydrogenase 208 U/L (81-234)
--- NOTE | 2021-06-12 21:13 | PC.NURSE ---
Labs all back and reported, Call placed per protocol to [facility] for consult c [facility]GING CATCHER oncall. Awaiting call back from [facility] oncall
--- NOTE | 2021-06-12 21:15 | PC.NURSE ---
Call back from [facility] and [facility] transfer center. They advise since pt is over 6 wks that she won't need consultation or referral. Pt may see her FMD for f/u. Orders obtained from [facility] for d/c home.
[2021-06-12 21:18] VITALS: BP 120/78; PULSE 94; RESP 18; TEMP 36.6; O2SAT 98
== END 2021-06-12 21:23 | disposition home or self-care (01) ==
PROVIDERS: Emergency Provider Emergency Medicine; PCP Nurse Practitioner Family
DX: K60.2 Anal fissure, unspecified (principal)
CPT/HCPCS: 36415; 80053; 82272; 83615; 85025; 85610; 85730; 99283

== ENCOUNTER 2022-07-19 00:22 | Emergency (ER) | payer OTHER, SELFPAY ==
--- NOTE | ~2022-07-19 | CT_ITS ---
EXAMINATION: CT abdomen pelvis wo con DATE: 07/19/2022 01:50 INDICATION: Mid and upper abdominal pain TECHNIQUE: Computed tomography (CT) of the abdomen and pelvis was performed without intravenous contr ast. The dose-length product (DLP) was 1424.69 mGy-cm. Automated exposure control and iterative recon struction technique were employed. COMPARISON: None FINDINGS: The lung bases are clear. The heart size is normal. The liver is diffusely low in attenuati on when compared with the spleen, consistent with hepatic steatosis. The spleen, pancreas, gallbladde r, and adrenal glands are normal. The kidneys are unremarkable. No pathologically enlarged abdominal or pelvic lymph nodes are identified. There is no free intraperitoneal gas or evidence of bowel obstr uction. There is a fat-containing umbilical hernia. IMPRESSION: 1. No CT correlate for the patient's symptoms. 2. Diffuse hepatic steatosis. Reviewed, dictated and finalized at location A. DER AND CHIEF EXECUTIVE OFFICER
[2022-07-19 00:30] VITALS: BP 146/103; PULSE 77; RESP 20; TEMP 35.8; O2SAT 98
--- NOTE | 2022-07-19 00:43 | ECG_ITS ---
Measurements Intervals [place] Rate: 59 P: -6 AL: 161 QRS: 54 QRSD: 79 T: 50 QT: 459 QTc: 456 Interpretive Statements SINUS BRADYCARDIA WITH SINUS ARRHYTHMIA OTHERWISE NORMAL ECG COMPARED TO ECG 12/19/2020 12:40:28 SINUS BRADYCARDIA NOW PRESENT SINUS ARRHYTHMIA NOW PRESENT Electronically Signed On 07-19-2022 15:08:55 SUPERVISOR MOLDING by Jose Roca M.D.
[2022-07-19] MEDS: SODIUM CHLORIDE 0.9% IV 1,000 ML 999 ML IV CONT (01:03)
[2022-07-19] MEDS: KETOROLAC 30 MG/ML VIAL (*BKC) IV PUSH (01:04)
[2022-07-19] MEDS: ONDANSETRON INJ 4 MG/2 ML VIAL IV PUSH (01:05)
[2022-07-19 01:06] LABS: Basophils Absolute Auto 0.04 K/mm3 (0.00-0.10); Basophils Percent Auto 0.4 % (0.0-1.0); Eosinophils Absolute Auto 0.23 K/mm3 (0.02-0.50); Eosinophils Percent Auto 2.3 % (1.0-6.0); Hematocrit 37.7 % (35.0-49.0); Hemoglobin 12.5 g/dL (12.0-15.0); Immature Granulocyte Absolute 0.03 K/mm3 (0.00-0.00); Immature Granulocyte Percent A 0.3 % (0.0-0.0); Lymphocytes Absolute Auto 3.31 K/mm3 (1.10-4.50); Lymphocytes Percent Auto 32.9 % (18.0-42.0); Mean Corpuscular HGB Conc 33.2 g/dL (32.0-36.0); Mean Corpuscular Hemoglobin 28.9 pg (27.0-31.0); Mean Corpuscular Volume 87.3 fL (78.0-102.0); Mean Platelet Volume 8.8 fl (9.2-11.8); Monocytes Absolute Auto 0.67 K/mm3 (0.10-0.90); Monocytes Percent Auto 6.7 % (2.0-11.0); Neutrophils Absolute Auto 5.8 K/mm3 (1.7-7.2); Neutrophils Percent Auto 57.4 % (50.0-70.0); Platelet Count Result 328 K/mm3 (150-420); Red Blood Count 4.32 M/mm3 (4.20-5.40); White Blood Count 10.1 K/mm3 (4.8-10.8)
[2022-07-19 01:08] LABS: Appearance Urine Clear (Clear); Bilirubin Urine Negative (Negative); Color Urine Yellow (Yellow); Glucose Urine UA Negative (Negative); Ketones Urine Negative (Negative); Leukocyte Esterase Ur Negative LEU/UL (Negative); Nitrate Urine Negative (Negative); Protein Urine Negative (Negative); Specific Grav Ur >= 1.030 (1.010-1.020); Urobilinogen Urine 0.2 mg/dL (0.2-1.0)
[2022-07-19 01:11] LABS: Pregnancy On Board Control Positive; Urine Pregnancy Test Negative
[2022-07-19 01:17] LABS: Add Urine Microscopic? YES; Bacteria Urine Trace /hpf; Blood Urine Trace-Intact (Negative); Squamous Epithelial Cell Urine Moderate /hpf (Few); WBC Urine 0-3 /hpf (0-3)
[2022-07-19 01:26] LABS: Alanine Aminotransferase 49 U/L (14-59); Albumin Level 3.6 g/dL (3.4-5.0); Alkaline Phosphatase 112 U/L (46-116); Anion Gap 12 mmol/L (8-16); Aspartate Amino Transferase 24 U/L (15-37); Bilirubin,Total 0.1 mg/dL (0.00-1.00); Blood Urea Nitrogen 14 mg/dL (7-18); Calcium 9.2 mg/dL (8.5-10.1); Carbon Dioxide 27 mmol/L (21-32); Chloride 103 mmol/L (98-108); Estimated CRCL calculation 129 ml/min; Estimated Glomerular Filt Rate > 60; Glucose 145 mg/dL (70-99); Lipase 110 U/L (73-393); Osmolality Calculated 297 mOsm/kg (285-295); Sodium 142 mmol/L (136-145); Total Protein 8.4 g/dL (6.4-8.2)
[2022-07-19 01:31] LABS: Lactic Acid Reflex 2.1 mmol/L (0.4-2.0)
[2022-07-19] MEDS: MORPHINE SULFATE (*CRX) 4 MG/ML INJ IV PUSH (01:38)
[2022-07-19 01:52] VITALS: BP 121/69; PULSE 58; RESP 20; O2SAT 100
--- NOTE | 2022-07-19 02:15 | PC.NURSE ---
Pt is sleeping, resting comfortably at this time, call from radiology stating CT report won't be read before 0330. Pts spouse informed on wait time for report, phone # received as spouse will go home and wait for call when reports are back. Unable to give explanation as to why wait time is so long for report to be read.
--- NOTE | 2022-07-19 03:11 | PC.NURSE ---
Pt remains asleep, no discomfort noted at this time, continuing to wait for CT report.
[2022-07-19 04:05] LABS: Reflex Lactic Acid Yes or No Add Lactic
[2022-07-19 04:19] VITALS: BP 118/69; PULSE 61; RESP 18; TEMP 36.6; O2SAT 99
[2022-07-19 04:47] LABS: Lactic Acid 1.2 mmol/L (0.4-2.0)
--- NOTE | 2022-07-19 05:03 | ED.ABDPAIN ---
HPI - Abdominal Pain General Chief Complaint: Abdominal Pain Stated Complaint: Abdominal Pain Source: patient Mode of arrival: ambulatory Limitations: no limitations History of Present Illness HPI narrative: this is 26-year-old female that presents with some abdominal pain, overall the past 3 days with episode of constipation with no flank pain no dysuria no hematuria no fever chills no chest pain or shortness of breath. MD elicited complaint: abdominal pain Onset (ago): day(s) Pain Consistency: intermittent Related Data Home Medications Medication Instructions Recorded Confirmed fluoxetine 20 mg capsule 60 mg PO DAILY 06/12/21 07/19/22 lisdexamfetamine 50 mg capsule 50 mg PO DAILY 07/19/22 07/19/22 (Vyvanse) metoprolol tartrate 25 mg tablet 25 mg PO BID 07/19/22 07/19/22 Allergies Allergy/AdvReac Type Severity Reaction Status Date / Time No Known Allergies Allergy Verified 12/19/20 13:12 Review of Systems Review of Systems: All systems reviewed & are unremarkable except as noted in HPI and below PMFSH Past Medical History Medical History ADHD GERD (gastroesophageal reflux disease) Surgical History Surgical History No pertinent past surgical history Social History Social History Gender identity (if verbalized by the patient): Female Sexual Orientation (if Verbalized by the Patient): Straight or Heterosexual Exam Const: General: healthy appearing Nutritional Appearance: well nourished Limitations: no limitations HENMT: Head: normal to inspection Ears: external ears normal Eyes: Conjunctivae: conjunctivae normal Pupils: Equal, round and reactive pupils present EOM: EOMs intact bilaterally Neck: Neck: normal visual inspection Chest: Chest palpation & inspection: normal inspection of the chest Resp: Effort & Inspection: normal respiratory effort Auscultation: clear to auscultation bilaterally Cardio: Rate: regular rate Rhythm: regular rhythm GI: GI Palp: Yes Soft to palpation Auscultation: normal bowel sounds : General: Yes bladder normal to palpation Back/Spine/Pelvis: Back: no CVA tenderness Skin: General skin exam: normal color Rashes: no rashes Neuro: General: patient oriented x3 Cranial nerves: Yes Nystagmus not present Speech: normal speech Extrem: General: normal to inspection Psych: Mental Status: mental status grossly normal Course Course Emergency Course: Patient received a dose of morphine and Toradol and pain level has improved CT scan and labs reviewed with patient and family. Vital Signs Vital signs: Vital Signs Temperature 35.8 C L 07/19/22 00:30 Pulse Rate 77 07/19/22 00:30 Respiratory Rate 20 07/19/22 00:30 Blood Pressure 146/103 H 07/19/22 00:30 Pulse Oximetry 98 07/19/22 00:30 Oxygen Delivery Room Air 07/19/22 00:30 Temperature 36.6 C 07/19/22 04:19 Pulse Rate 61 07/19/22 04:19 Respiratory Rate 18 07/19/22 04:19 Blood Pressure 118/69 07/19/22 04:19 Pulse Oximetry 99 07/19/22 04:19 Oxygen Delivery Room Air 07/19/22 04:19 MDM - Abdominal Pain Lab Data 07/19/22 01:03 07/19/22 01:03 Labs: Lab Results 07/19/22 07/19/22 07/19/22 Range/Units 01:03 01:03 01:03 WBC 10.1 (4.8-10.8) K/mm3 RBC 4.32 (4.20-5.40) M/mm3 Hgb 12.5 (12.0-15.0) g/dL Hct 37.7 (35.0-49.0) % MCV 87.3 (78.0-102.0) fL MCH 28.9 (27.0-31.0) pg MCHC 33.2 (32.0-36.0) g/dL RDW 13.0 (11.6-14.4) % Plt Count 328 (150-420) K/mm3 MPV 8.8 L (9.2-11.8) fl Immature Gran % (Auto) 0.3 H (0.0-0.0) % Neut % (Auto) 57.4 (50.0-70.0) % Lymph % (Auto) 32.9 (18.0-42.0) % [place] % (Auto) 6.7 (2.0-11.0) % Eos % (Auto) 2.3 (1.0-6.0) % Baso % (Auto) 0.4 (0.0-1.0) % Lymph #
[2022-07-19 05:10] VITALS: BP 121/65; PULSE 74; RESP 18; TEMP 36.6; O2SAT 98
== END 2022-07-19 05:16 | disposition home or self-care (01) ==
PROVIDERS: Emergency Provider Emergency Medicine
DX: K76.0 Fatty (change of) liver, not elsewhere classified (principal); R10.84 Generalized abdominal pain; K59.00 Constipation, unspecified
CPT/HCPCS: 36415; 74176; 80053; 81001; 81025; 83605; 83690; 85025; 93005; 96361; 96374; 96375; 99284; J1885; J2270; J2405; J7030

== ENCOUNTER 2023-04-04 09:15 | Emergency (ER) | payer OTHER, SELFPAY ==
[2023-04-04 09:22] VITALS: BP 116/73; PULSE 68; RESP 14; TEMP 36.4; O2SAT 100
--- NOTE | 2023-04-04 09:22 | ECG_ITS ---
Measurements Intervals [place] Rate: 64 P: 7 WI: 155 QRS: 46 QRSD: 81 T: 36 QT: 405 QTc: 420 Interpretive Statements SINUS RHYTHM WITH SINUS ARRHYTHMIA NORMAL ELECTROCARDIOGRAM NO PREVIOUS ECG AVAILABLE FOR COMPARISON Electronically Signed On 04-04-2023 15:54:04 CDT by Marino Marshall M.D.
[2023-04-04 10:22] LABS: Appearance Urine Cloudy (Clear); Bacteria Urine 1+ /hpf; Bilirubin Urine Negative (Negative); Blood Urine Negative (Negative); Color Urine Yellow (Yellow); Glucose Urine UA Negative (Negative); Ketones Urine Negative (Negative); Leukocyte Esterase Ur Negative LEU/UL (Negative); Mucus Urine Present /lpf; Nitrate Urine Negative (Negative); Protein Urine Negative (Negative); RBC Urine 0-2 /hpf (0-2); Specific Grav Ur 1.026 (1.001-1.035); Squamous Epithelial Cell Urine Moderate /hpf (Few); Urobilinogen Urine 0.2 mg/dL (<2.0); WBC Urine 0-5 /hpf; pH Urine 5.5 (5.0-9.0)
[2023-04-04 10:23] LABS: Add Urine Microscopic? YES
[2023-04-04 10:29] LABS: Basophils Percent Auto 0.2 % (0.2-1.2); Eosinophils Absolute Auto 0.1 K/mm3 (0-0.3); Eosinophils Percent Auto 1.1 % (0-4.4); Hematocrit 33.1 % (37.0-47.0); Hemoglobin 10.7 g/dL (12.0-15.0); Immature Granulocyte Absolute 0.04 K/mm3 (0.00-0.031); Immature Granulocyte Percent A 0.5 % (0-0.5); Lymphocytes Absolute Auto 1.84 K/mm3 (0.9-3.2); Lymphocytes Percent Auto 22.6 % (18.3-44.2); Mean Corpuscular HGB Conc 32.3 g/dl (32-36); Mean Corpuscular Hemoglobin 29.4 pg (26-34); Mean Corpuscular Volume 90.9 fl (80-100); Mean Platelet Volume 9.6 fl (7.4-10.4); Monocytes Absolute Auto 0.3 K/mm3 (0.1-0.6); Monocytes Percent Auto 4.2 % (2.6-8.5); Neutrophils Absolute Auto 5.8 K/mm3 (1.3-6.7); Neutrophils Percent Auto 71.4 % (45.5-73.1); Platelet Count Result 269 k/mm3 (150-375); Red Blood Count 3.64 M/mm3 (4.2-5.4); Red Cell Distribution Width 13.5 % (11.5-14.5); White Blood Count 8.1 K/mm3 (4.5-10.0)
[2023-04-04] MEDS: LACTATED RINGERS 1,000 ML 999 ML IV CONT (10:35)
[2023-04-04 10:44] LABS: Alanine Aminotransferase 27 U/L (6-35); Albumin Level 4.3 g/dL (3.5-5.1); Alkaline Phosphatase 94 U/L (38-126); Anion Gap 9 mmol/L (8-16); Aspartate Amino Transferase 29 U/L (14-36); Bilirubin,Total 0.2 mg/dL (0.2-1.3); Blood Urea Nitrogen 10 mg/dL (7-17); Calcium 9.2 mg/dL (8.4-10.2); Carbon Dioxide 22 mmol/L (22-30); Chloride 104 mmol/L (98-107); Estimated CRCL calculation 214 ml/min; Estimated Glomerular Filt Rate > 60; Glucose 87 mg/dL (65-110); Magnesium 1.9 mg/dL (1.6-2.3); Potassium 3.8 mmol/L (3.4-5.0); Sodium 135 mmol/L (137-145)
[2023-04-04 10:54] LABS: Troponin I < 0.012 ng/mL (0.000-0.034)
[2023-04-04 11:00] VITALS: BP 126/75; PULSE 64
[2023-04-04 11:05] VITALS: BP 126/79; PULSE 64
[2023-04-04 11:07] VITALS: BP 122/89; PULSE 85
--- NOTE | 2023-04-04 12:08 | ED.SYNCOPE ---
HPI - Syncope General Chief Complaint: Syncope Stated Complaint: 18 weeks - syncopal episode this morning Time Seen by Provider: 04/04/23 09:24 Source: patient and RN notes reviewed Mode of arrival: ambulatory Limitations: no limitations History of Present Illness HPI narrative: This is a 27 year old female 18 weeks GA who presents for evaluation of syncopal episode. Patient states she was at work last night. 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 She leaned against the wall and she slid down. She reports she was told that she passed out. She denies chest pain , shortness of breath, palpitations, nausea, vomiting, diarrhea. She denies any issues with this . She reports having history of cardiomyopathy several years ago but her last ECHO shows normal EF. She went to Labor and Delivery and she was referred to ER. She feels better but she reports tiredness. She went into work last night. Related Data Home Medications Medication Instructions Recorded Confirmed fluoxetine 20 mg capsule 60 mg PO DAILY 06/12/21 09/06/22 lisdexamfetamine 50 mg capsule 50 mg PO DAILY 07/19/22 09/06/22 (Vyvanse) metoprolol tartrate 25 mg tablet 25 mg PO BID 07/19/22 09/06/22 Allergies Allergy/AdvReac Type Severity Reaction Status Date / Time No Known Allergies Allergy Verified 04/04/23 09:16 Review of Systems Constitutional: Constitutional: Reports fatigue and Denies weakness Cardiovascular: Cardiovascular: Denies syncope, Denies rapid heart rate, Denies irregular heart rhythm, Denies leg edema and Denies dyspnea Respiratory: Respiratory: Denies chest congestion, Denies hemoptysis, Denies excessive phlegm production and Denies dyspnea Gastrointestinal: Gastrointestinal: Denies abdominal pain, Denies hematochezia, Denies diarrhea and Denies vomiting Genitourinary: Genitourinary: Denies hematuria and Denies dysuria Musculoskeletal: Musculoskeletal: Denies joint swelling, Denies loss of height and Denies muscle weakness Neurologic: Reports syncope, Denies focal weakness and Denies weakness PMFSH Past Medical History Medical History ADHD GERD (gastroesophageal reflux disease) Surgical History Surgical History No pertinent past surgical history Social History Social History Smoking status: Unknown if ever smoked Living arrangements: with family Gender identity (if verbalized by the patient): Female Sexual Orientation (if Verbalized by the Patient): Straight or Heterosexual Exam Const: General: alert Nutritional Appearance: well nourished Orientation/consciousness: patient oriented x3 Limitations: no limitations HENMT: Head: normal to inspection Ears: external ears normal and TM's normal bilaterally Face/Nose/Sinus: Normal external nose present Mouth: Yes Normal oral and palatal mucosa present, Yes lip normal and Yes moist mucous membranes Eyes: EOM: EOMs intact bilaterally Neck: Neck: normal visual inspection Chest: Chest palpation & inspection: normal inspection of the chest Resp: Effort & Inspection: normal respiratory effort Auscultation: clear to auscultation bilaterally Cardio: Rate: regular rate Rhythm: regular rhythm Heart sounds: no murmurs GI: Auscultation: normal bowel sounds Back/Spine/Pelvis: Back: no CVA tenderness Skin: General skin exam: normal color Rashes: no rashes Wounds: no wounds Neuro: General: patient oriented x3, moves all extremities and CN's II-XI intact bilaterally Extrem: General: normal to inspection Psych: Mental Status: mental status grossly normal Affect: normal affect Attitude: cooperative Course Reevaluation(s) Reevaluation #1: Patient states she feels better. She denies dizziness. I spoke with Wendy Nair
[2023-04-04 12:36] VITALS: BP 106/73; PULSE 77; RESP 18; O2SAT 100
== END 2023-04-04 12:36 | disposition home or self-care (01) ==
PROVIDERS: Emergency Provider General Practice; PCP Family Medicine
DX: O26.892 Other specified pregnancy related conditions, second trimester (principal); R55 Syncope and collapse; O99.612 Diseases of the digestive system complicating pregnancy, second trimester; K21.9 Gastro-esophageal reflux disease without esophagitis; O99.342 Other mental disorders complicating pregnancy, second trimester; F90.9 Attention-deficit hyperactivity disorder, unspecified type; Z3A.18 18 weeks gestation of pregnancy
CPT/HCPCS: 36415; 80053; 81001; 81025; 83735; 84484; 85025; 93005; 96360; 96361; 99284; J7120

== ENCOUNTER 2023-06-30 17:54 | Outpatient (CLI) | payer OTHER, SELFPAY ==
[2023-06-30] VITALS (12 sets, daily range): BP systolic 116–130; BP diastolic 66–75; PULSE 88–101; TEMP 36.3; O2SAT 98–100; BMI 35.2
[2023-06-30 19:07] LABS: Basophils Percent Auto 0.3 % (0.2-1.2); Eosinophils Absolute Auto 0.2 K/mm3 (0-0.3); Eosinophils Percent Auto 1.8 % (0-4.4); Hematocrit 29.5 % (37.0-47.0); Hemoglobin 9.4 g/dL (12.0-15.0); Immature Granulocyte Absolute 0.11 K/mm3 (0.00-0.031); Lymphocytes Percent Auto 18.4 % (18.3-44.2); Mean Corpuscular HGB Conc 31.9 g/dl (32-36); Mean Corpuscular Hemoglobin 28.7 pg (26-34); Mean Corpuscular Volume 90.2 fl (80-100); Monocytes Absolute Auto 0.7 K/mm3 (0.1-0.6); Monocytes Percent Auto 6.1 % (2.6-8.5); Neutrophils Absolute Auto 7.9 K/mm3 (1.3-6.7); Neutrophils Percent Auto 72.4 % (45.5-73.1); Platelet Count Result 321 k/mm3 (150-375); Red Blood Count 3.27 M/mm3 (4.2-5.4); Red Cell Distribution Width 13.4 % (11.5-14.5); White Blood Count 10.9 K/mm3 (4.5-10.0)
[2023-06-30 19:12] LABS: Appearance Urine Cloudy (Clear); Bacteria Urine 1+ /hpf; Bilirubin Urine Negative (Negative); Blood Urine Negative (Negative); Color Urine Yellow (Yellow); Glucose Urine UA Negative (Negative); Ketones Urine Trace mg/dL (Negative); Leukocyte Esterase Ur Negative LEU/UL (NEGATIVE); Nitrate Urine Negative (Negative); Non Pathogenic Casts 0-2; Protein Urine Trace mg/dL (Negative); RBC Urine 0-2 /hpf (0-2); Specific Grav Ur 1.022 (1.001-1.035); Squamous Epithelial Cell Urine Moderate /hpf (Few); pH Urine 6.5 (5.0-9.0)
[2023-06-30 19:19] LABS: Creatinine Urine 166.6 mg/dL; Total Protein Urine Random 6 mg/dL; Ur Ttl Prot Creatinine Ratio 0.04 mg/mg (0-0.20)
[2023-06-30 19:21] LABS: Alanine Aminotransferase 21 U/L (6-35); Albumin Level 3.3 g/dL (3.5-5.1); Alkaline Phosphatase 102 U/L (38-126); Anion Gap 8 mmol/L (8-16); Aspartate Amino Transferase 27 U/L (14-36); Bilirubin,Total 0.3 mg/dL (0.2-1.3); Blood Urea Nitrogen 6 mg/dL (7-17); Calcium 8.7 mg/dL (8.4-10.2); Carbon Dioxide 22 mmol/L (22-30); Chloride 105 mmol/L (98-107); Estimated Glomerular Filt Rate > 60; Glucose 106 mg/dL (65-110); Sodium 135 mmol/L (137-145); Uric Acid 5.3 mg/dL (2.5-7.5)
[2023-06-30 19:37] LABS: Add Urine Microscopic? YES
--- NOTE | 2023-06-30 19:51 | PC.NURSE ---
Updated Dr. Yancey on pt decreased movement, headache, blood pressure, pelvic pressure, tracing, lab results, and next scheduled appointment. Orders received to discharge pt and take another Fioricet this evening.
== END 2023-06-30 19:59 | disposition home or self-care (01) ==
LOC: ANHOBOP 18:07 → ANHOBPP 18:08
PROVIDERS: PCP Family Medicine; Visit Provider Obstetrics & Gynecology
DX: O36.8190 Decreased fetal movements, unspecified trimester, not applicable or unspecified (principal); R51.9 Headache, unspecified
CPT/HCPCS: 36415; 59025; 80053; 81001; 82570; 84156; 84550; 85025; 87086; 87088; 99199

== ENCOUNTER 2023-07-11 15:10 | Observation (INO) | payer OTHER, SELFPAY ==
[2023-07-11] VITALS (8 sets, daily range): BP systolic 115–131; BP diastolic 64–81; PULSE 78–96; BMI 35.6
[2023-07-11 15:43] LABS: Appearance Urine Cloudy (Clear); Bacteria Urine 1+ /hpf; Bilirubin Urine Negative (Negative); Blood Urine Negative (Negative); Color Urine Yellow (Yellow); Glucose Urine UA Negative (Negative); Ketones Urine Negative (Negative); Leukocyte Esterase Ur 2+ LEU/UL (Negative); Nitrate Urine Negative (Negative); Non Pathogenic Casts 0-2; Protein Urine Negative (Negative); RBC Urine 0-2 /hpf (0-2); Specific Grav Ur 1.021 (1.001-1.035); Squamous Epithelial Cell Urine Few /hpf (Few); Urobilinogen Urine 0.2 mg/dL (<2.0); WBC Urine 21-50 /hpf
[2023-07-11 15:45] LABS: Add Urine Microscopic? YES
--- NOTE | 2023-07-11 16:01 | PC.NURSE ---
1550--Report to Dr. Orlando re: pt's reports of pelvic pressure since Friday and stating that it feels like she's just going to fall out . Orders to do gentle cervical exam, and wait for urine results.
--- NOTE | 2023-07-11 16:06 | OBADM ---
This patient, Martha Shields, admitted to the OB room OB Post 117 for observation. Patient/family oriented to hospital policies and general routines including ID bracelet, bed and alarms, visiting hours, pain management, procedures, bathroom and other care routines, personal items, smoking policy, room service/diet, and visiting hours. Patient/Family are encouraged to report perceived risks to care and to ask questions if they do not understand what they are told or what they should do. Pt. presents with reports of pelvic pressure since Friday. She states that when she walks or sits down it feels like the baby is just going to fall out like there is a bowling ball between her legs. Pt. Denies any leaking of fluid or vaginal bleeding. She states she has an occasional contraction, but nothing painful.
--- NOTE | 2023-07-11 16:32 | PC.NURSE ---
1630--Report lab results, fhr tracing and cervical exam. Orders to continue to monitor for 1hr after decel.
--- NOTE | 2023-08-06 08:53 | P.PNOB_ITS ---
OB - Triage/Final Diagnosis Visit Information Comments/Additional reasons for admission: I have assessed the risk for this patient, Martha Shields, and determined that she would benefit from observation care. Evaluation Laboratory results: Laboratory Tests 07/11/23 15:28 Urine Color Yellow Urine Appearance Cloudy H Urine pH 6.0 Ur Specific [place] 1.021 Urine Protein Negative Urine Glucose (UA) Negative Urine Ketones Negative Ur Blood (Man) Negative Urine Nitrate Negative Urine Bilirubin Negative Urine Urobilinogen 0.2 Leukocyte Esterase Rfl 2+ H Urine RBC 0-2 Urine WBC 21-50 H Ur Squamous Epith Cells Few Urine Bacteria 1+ H Urine Casts 0-2 Final Diagnosis (1) Pelvic pressure in : Code(s): O26.899 - Other specified related conditions, unspecified trimester; R10.2 - Pelvic and perineal pain Status: Acute
== END 2023-07-11 17:33 | disposition home or self-care (01) ==
PROVIDERS: Admitting Provider Obstetrics & Gynecology; PCP Family Medicine; Visit Provider Obstetrics & Gynecology
DX: O26.893 Other specified pregnancy related conditions, third trimester (principal); R10.2 Pelvic and perineal pain; Z3A.32 32 weeks gestation of pregnancy
CPT/HCPCS: 81001; 87086; G0378; G0379

== ENCOUNTER 2023-07-16 06:33 | Observation (INO) | payer OTHER, SELFPAY ==
[2023-07-16 07:16] VITALS: BP 108/68; PULSE 105
[2023-07-16 07:20] VITALS: BMI 35.4
--- NOTE | 2023-07-16 07:20 | OBADM ---
This patient, Martha Shields, admitted to the OB room 116 for observation for migraine and pelvic pressure. Patient/family oriented to hospital policies and general routines including ID bracelet, bed and alarms, visiting hours, pain management, procedures, bathroom and other care routines, personal items, smoking policy, room service/diet, and visiting hours. Patient/Family are encouraged to report perceived risks to care and to ask questions if they do not understand what they are told or what they should do.
[2023-07-16] MEDS: ACETAMINOPHEN/BUTALBITAL/CAFFEINE 325-50-40 MG TABLET (FIORICET) 2 TAB PO (07:22)
[2023-07-16 07:38] LABS: Basophils Percent Auto 0.3 % (0.2-1.2); Eosinophils Absolute Auto 0.2 K/mm3 (0-0.3); Eosinophils Percent Auto 1.5 % (0-4.4); Hematocrit 30.5 % (37.0-47.0); Hemoglobin 9.7 g/dL (12.0-15.0); Immature Granulocyte Absolute 0.13 K/mm3 (0.00-0.031); Immature Granulocyte Percent A 1.2 % (0-0.5); Lymphocytes Absolute Auto 1.21 K/mm3 (0.9-3.2); Lymphocytes Percent Auto 11.2 % (18.3-44.2); Mean Corpuscular HGB Conc 31.8 g/dl (32-36); Mean Corpuscular Hemoglobin 28.1 pg (26-34); Mean Corpuscular Volume 88.4 fl (80-100); Mean Platelet Volume 9.1 fl (7.4-10.4); Monocytes Absolute Auto 0.5 K/mm3 (0.1-0.6); Neutrophils Absolute Auto 8.8 K/mm3 (1.3-6.7); Neutrophils Percent Auto 80.8 % (45.5-73.1); Platelet Count Result 303 k/mm3 (150-375); Red Blood Count 3.45 M/mm3 (4.2-5.4); White Blood Count 10.9 K/mm3 (4.5-10.0)
[2023-07-16 07:45] LABS: Appearance Urine Cloudy (Clear); Bacteria Urine 3+ /hpf; Bilirubin Urine Negative (Negative); Blood Urine Negative (Negative); Color Urine Yellow (Yellow); Glucose Urine UA Negative (Negative); Ketones Urine Negative (Negative); Leukocyte Esterase Ur 2+ LEU/UL (Negative); Nitrate Urine Negative (Negative); Non Pathogenic Casts 0-2; Protein Urine Negative (Negative); RBC Urine 0-2 /hpf (0-2); Squamous Epithelial Cell Urine Many /hpf (Few); Urobilinogen Urine 0.2 mg/dL (<2.0); WBC Urine 21-50 /hpf; pH Urine 6.5 (5.0-9.0)
[2023-07-16 07:55] LABS: Alanine Aminotransferase 17 U/L (6-35); Albumin Level 3.3 g/dL (3.5-5.1); Alkaline Phosphatase 126 U/L (38-126); Anion Gap 8 mmol/L (8-16); Aspartate Amino Transferase 25 U/L (14-36); Bilirubin,Total 0.5 mg/dL (0.2-1.3); Blood Urea Nitrogen 4 mg/dL (7-17); Calcium 8.8 mg/dL (8.4-10.2); Carbon Dioxide 21 mmol/L (22-30); Chloride 106 mmol/L (98-107); Creatinine Urine 158.8 mg/dL; Estimated Glomerular Filt Rate > 60; Glucose 99 mg/dL (65-110); Potassium 4.2 mmol/L (3.4-5.0); Sodium 135 mmol/L (137-145); Total Protein Urine Random 6 mg/dL; Ur Ttl Prot Creatinine Ratio 0.04 mg/mg (0-0.20); Uric Acid 5.6 mg/dL (2.5-7.5)
[2023-07-16 08:00] VITALS: BP 108/67; PULSE 94
[2023-07-16 08:13] LABS: Add Urine Microscopic? YES
--- NOTE | 2023-07-16 09:13 | PC.NURSE ---
Pt has finished breakfast and headache is almost gone. Pt ready to go home. Brandy Molina CNM paged.
--- NOTE | 2023-07-16 09:41 | PC.NURSE ---
Brandy Molina CNM informed of BP's, labs, headache was down to a 2 out of 10 last time I was in the room. Only rare uterine irritability noted on monitor and pt didn't feel any contractions. OK to discharge to home. No SVE to be performed.
--- NOTE | 2023-07-17 17:10 | PM.OBTRLD ---
OB - Triage/Final Diagnosis Visit Information Date of evaluation: 07/16/23 Reason for evaluation: other (headache) Comments/Additional reasons for admission: I have assessed the risk for this patient, Martha Shields, and determined that she would benefit from observation care. Evaluation Laboratory results: Laboratory Tests 07/16/23 07:31 WBC 10.9 H RBC 3.45 L Hgb 9.7 L Hct 30.5 L MCV 88.4 MCH 28.1 MCHC 31.8 L RDW 13.0 Plt Count 303 MPV 9.1 Immature Gran % (Auto) 1.2 H Neut % (Auto) 80.8 H Lymph % (Auto) 11.2 L [place] % (Auto) 5.0 Eos % (Auto) 1.5 Baso % (Auto) 0.3 Lymph # (Auto) 1.21 [place] # (Auto) 0.5 Eos # (Auto) 0.2 Baso # (Auto) 0.0 Abs Immat Gran (auto) 0.13 H Absolute Neuts (auto) 8.8 H Absolute Nucleated RBC 0.0 Nucleated RBC % 0.0 Sodium 135 L Potassium 4.2 Chloride 106 Carbon Dioxide 21 L Anion Gap 8 BUN 4 L Creatinine 0.50 L Estim Creat Clear Calc Not Reportable Estimated GFR > 60 Glucose 99 Uric Acid 5.6 Calcium 8.8 Total Bilirubin 0.5 AST 25 ALT 17 Alkaline Phosphatase 126 Total Protein 7.0 Albumin 3.3 L Urine Color Yellow Urine Appearance Cloudy H Urine pH 6.5 Ur Specific [place] 1.020 Urine Protein Negative Urine Glucose (UA) Negative Urine Ketones Negative Ur Blood (Man) Negative Urine Nitrate Negative Urine Bilirubin Negative Urine Urobilinogen 0.2 Leukocyte Esterase Rfl 2+ H Urine RBC 0-2 Urine WBC 21-50 H Ur Squamous Epith Cells Many H Urine Bacteria 3+ H Urine Casts 0-2 U Random Total Protein 6 Urine Creatinine 158.8 Protein/Creat Ratio 2 0.04
== END 2023-07-16 10:15 | disposition home or self-care (01) ==
PROVIDERS: Advanced Practice Midwife; Admitting Provider Obstetrics & Gynecology; PCP Family Medicine; Visit Provider Obstetrics & Gynecology
DX: O26.893 Other specified pregnancy related conditions, third trimester (principal); R51.9 Headache, unspecified; Z3A.32 32 weeks gestation of pregnancy
CPT/HCPCS: 36415; 80053; 81001; 82570; 84156; 84550; 85025; 87086; A9270; G0378; G0379

== ENCOUNTER 2023-07-31 17:55 | Outpatient (CLI) | payer OTHER, SELFPAY ==
[2023-07-31 18:28] VITALS: BMI 35.7
== END 2023-07-31 19:20 | disposition home or self-care (01) ==
LOC: ANHOBOP 18:02 → ANHOBPP 18:02
PROVIDERS: PCP Family Medicine; Visit Provider Advanced Practice Midwife
DX: O42.90 Premature rupture of membranes, unspecified as to length of time between rupture and onset of labor, unspecified weeks of gestation (principal)
CPT/HCPCS: 59025; 84112; 99199

== ENCOUNTER 2023-08-09 15:20 | Outpatient (CLI) | payer OTHER, SELFPAY ==
[2023-08-09 16:01] VITALS: BP 98/81; PULSE 106
[2023-08-09 16:09] LABS: Basophils Percent Auto 0.2 % (0.2-1.2); Eosinophils Absolute Auto 0.1 K/mm3 (0-0.3); Eosinophils Percent Auto 1.2 % (0-4.4); Hematocrit 30.2 % (37.0-47.0); Hemoglobin 9.7 g/dL (12.0-15.0); Immature Granulocyte Absolute 0.04 K/mm3 (0.00-0.031); Immature Granulocyte Percent A 0.5 % (0-0.5); Lymphocytes Absolute Auto 1.53 K/mm3 (0.9-3.2); Lymphocytes Percent Auto 18.4 % (18.3-44.2); Mean Corpuscular HGB Conc 32.1 g/dl (32-36); Mean Corpuscular Hemoglobin 27.4 pg (26-34); Mean Corpuscular Volume 85.3 fl (80-100); Mean Platelet Volume 9.1 fl (7.4-10.4); Monocytes Absolute Auto 0.5 K/mm3 (0.1-0.6); Monocytes Percent Auto 6.1 % (2.6-8.5); Neutrophils Absolute Auto 6.1 K/mm3 (1.3-6.7); Neutrophils Percent Auto 73.6 % (45.5-73.1); Platelet Count Result 308 k/mm3 (150-375); Red Blood Count 3.54 M/mm3 (4.2-5.4); Red Cell Distribution Width 13.3 % (11.5-14.5); White Blood Count 8.3 K/mm3 (4.5-10.0)
[2023-08-09 16:15] VITALS: BP 106/77; PULSE 89
[2023-08-09 16:15] LABS: Appearance Urine Cloudy (Clear); Bacteria Urine 4+ /hpf; Bilirubin Urine Negative (Negative); Blood Urine Negative (Negative); Color Urine Yellow (Yellow); Creatinine Urine 251.9 mg/dL; Glucose Urine UA Negative (Negative); Ketones Urine Trace mg/dL (Negative); Leukocyte Esterase Ur 2+ LEU/UL (Negative); Nitrate Urine Negative (Negative); Protein Urine Trace mg/dL (Negative); RBC Urine 0-2 /hpf (0-2); Specific Grav Ur 1.029 (1.001-1.035); Squamous Epithelial Cell Urine Moderate /hpf (Few); Total Protein Urine Random 10 mg/dL; Ur Ttl Prot Creatinine Ratio 0.04 mg/mg (0-0.20); WBC Urine 21-50 /hpf; pH Urine 5.5 (5.0-9.0)
[2023-08-09 16:30] VITALS: BP 120/80; PULSE 90
[2023-08-09 16:37] LABS: Alanine Aminotransferase 17 U/L (6-35); Albumin Level 3.4 g/dL (3.5-5.1); Alkaline Phosphatase 171 U/L (38-126); Anion Gap 7 mmol/L (8-16); Aspartate Amino Transferase 28 U/L (14-36); Bilirubin,Total 0.3 mg/dL (0.2-1.3); Blood Urea Nitrogen 7 mg/dL (7-17); Calcium 8.8 mg/dL (8.4-10.2); Carbon Dioxide 21 mmol/L (22-30); Chloride 106 mmol/L (98-107); Estimated Glomerular Filt Rate > 60; Glucose 80 mg/dL (65-110); Sodium 134 mmol/L (137-145); Uric Acid 6.2 mg/dL (2.5-7.5)
[2023-08-09 16:40] LABS: Add Urine Microscopic? YES
[2023-08-09 16:45] VITALS: BP 96/54; PULSE 109
== END 2023-08-09 17:00 | disposition home or self-care (01) ==
LOC: ANHOBOP 15:25 → ANHOBPP 15:28
PROVIDERS: PCP Family Medicine; Visit Provider Advanced Practice Midwife
DX: O13.9 Gestational [pregnancy-induced] hypertension without significant proteinuria, unspecified trimester (principal)
CPT/HCPCS: 36415; 59025; 80053; 81001; 82570; 84156; 84550; 85025; 87086; 87088; 99199

== ENCOUNTER 2023-08-15 20:18 | Observation (INO) | payer OTHER, SELFPAY ==
[2023-08-15] VITALS (10 sets, daily range): BP systolic 126–148; BP diastolic 70–110; PULSE 75–101
--- NOTE | 2023-08-15 21:40 | PC.NURSE ---
Dr Yancey notified about patient status. Instructed to monitor patient for another hour, if no change then it is OK to discharge patient.
--- NOTE | 2023-08-15 22:52 | OBADM ---
This patient, Martha Shields, admitted to the OB room Labor/Delivery/Recovery 106 for observation. Patient/family oriented to hospital policies and general routines including ID bracelet, bed and alarms, visiting hours, pain management, procedures, bathroom and other care routines, personal items, smoking policy, room service/diet, and visiting hours. Patient/Family are encouraged to report perceived risks to care and to ask questions if they do not understand what they are told or what they should do.
--- NOTE | 2023-09-15 13:39 | PM.OBTRLD ---
OB - Triage/Final Diagnosis Visit Information Comments/Additional reasons for admission: I have assessed the risk for this patient, Martha Shields, and determined that she would benefit from observation care. Final Diagnosis (1) Combined abdominal and pelvic pain: Code(s): R10.9 - Unspecified abdominal pain; R10.2 - Pelvic and perineal pain Status: Acute
== END 2023-08-15 23:02 | disposition home or self-care (01) ==
PROVIDERS: Admitting Provider Obstetrics & Gynecology; PCP Family Medicine; Visit Provider Obstetrics & Gynecology
DX: O26.893 Other specified pregnancy related conditions, third trimester (principal); R10.9 Unspecified abdominal pain; R10.2 Pelvic and perineal pain; Z3A.37 37 weeks gestation of pregnancy
CPT/HCPCS: G0378; G0379

== ENCOUNTER 2023-08-19 20:45 | Inpatient (IN) | payer OTHER, SELFPAY ==
[2023-08-19 21:46] VITALS: BP 124/70; PULSE 70
[2023-08-19 22:13] VITALS: BMI 35.6
--- NOTE | 2023-08-19 22:13 | LDADM ---
This patient, Martha Shields, was admitted to Labor/Delivery/Recovery 105 on 08/19/23 at 20:45. Plans for labor, pain management and were discussed with patient. Patient/family oriented to hospital policies and general routines including ID bracelet, bed and alarms, visiting hours, pain management, procedures, bathroom and other care routines, personal items, smoking policy, room service/diet and guest tray routines, infant security routines, and visiting hours. Patient/Family are encouraged to report perceived risks to care and to ask questions if they do not understand what they are told or what they should do. See OBIX for further documentation.
[2023-08-19 22:39] LABS: Basophils Percent Auto 0.2 % (0.2-1.2); Eosinophils Absolute Auto 0.2 K/mm3 (0-0.3); Eosinophils Percent Auto 1.6 % (0-4.4); Hematocrit 30.6 % (37.0-47.0); Hemoglobin 9.7 g/dL (12.0-15.0); Immature Granulocyte Absolute 0.07 K/mm3 (0.00-0.031); Immature Granulocyte Percent A 0.7 % (0-0.5); Lymphocytes Absolute Auto 2.08 K/mm3 (0.9-3.2); Lymphocytes Percent Auto 20.8 % (18.3-44.2); Mean Corpuscular HGB Conc 31.7 g/dl (32-36); Mean Corpuscular Hemoglobin 27.3 pg (26-34); Mean Corpuscular Volume 86.2 fl (80-100); Mean Platelet Volume 9.8 fl (7.4-10.4); Monocytes Absolute Auto 0.7 K/mm3 (0.1-0.6); Monocytes Percent Auto 7.3 % (2.6-8.5); Neutrophils Absolute Auto 6.9 K/mm3 (1.3-6.7); Neutrophils Percent Auto 69.4 % (45.5-73.1); Platelet Count Result 300 k/mm3 (150-375); Red Blood Count 3.55 M/mm3 (4.2-5.4); Red Cell Distribution Width 13.6 % (11.5-14.5)
[2023-08-19] MEDS: LACTATED RINGERS 1,000 ML 125 ML IV CONT (22:44)
[2023-08-19 22:45] VITALS: TEMP 35.7
[2023-08-19] MEDS: AMPICILLIN 2 GM/NS 100 ML 2 GM/100 ML BAG IVPB (22:45)
[2023-08-20] VITALS (66 sets, daily range): BP systolic 89–139; BP diastolic 35–110; PULSE 54–102; RESP 16–20; TEMP 36–37.3; O2SAT 94–100
[2023-08-20] MEDS: AMPICILLIN 1 GM/NS 50 ML 1 GM/50 ML BAG IVPB ×2 (02:45→06:52)
[2023-08-20] MEDS: LACTATED RINGERS 500 ML 999 ML IV CONT (03:00)
[2023-08-20] MEDS: fentaNYL CITRATE INJ (*CRX) 100 MCG/2 ML VIAL IV PUSH (03:04)
--- NOTE | 2023-08-20 03:22 | WPDANESEPP ---
Anes - Eval Pre Procedure Procedure: Labor epidural Date/Time: 08/20/23 03:22 Surgeon: Naye Preop Diagnosis: Abdominal pain with contractions Pre Op Diagnosis: Leaking Fluid Patient Data Age: 27 Gender: F Height: 1.85 m Weight: 122.47 kg Last Vital Signs Temp 96.8 F L 08/20/23 00:51 Pulse 80 08/20/23 03:07 Resp 16 08/20/23 00:51 BP 112/63 08/20/23 03:07 O2 Del Method Room Air 08/19/23 22:13 Allergies Allergy/AdvReac Type Severity Reaction Status Date / Time No Known Allergies Allergy Verified 08/05/23 13:25 Home Medications Medication Instructions Recorded Confirmed Type fluoxetine 20 mg capsule (Prozac) 60 mg PO DAILY 06/12/21 08/05/23 History lisdexamfetamine 50 mg capsule 50 mg PO DAILY 07/19/22 08/05/23 History (Vyvanse) aspirin 81 mg tablet 81 mg PO DAILY 07/11/23 08/05/23 History vit no.133-ferrous 1 tablet PO DAILY 07/11/23 08/05/23 History fumarate 28 mg-folic acid 800 mcg tablet () lmdpxpaoxb-hoccgcmdbdscs-vlcytnbo 1 cap PO Q4H PRN Migraine Headache 07/16/23 08/05/23 History 50 mg-300 mg-40 mg capsule ferrous sulfate 142 mg (45 mg 142 mg PO DAILY 07/16/23 08/05/23 History iron) tablet,extended release Laboratory Tests 08/19/23 08/19/23 22:12 22:13 WBC 10.0 K/mm3 (4.5-10.0) RBC 3.55 L M/mm3 (4.2-5.4) Hgb 9.7 L g/dL (12.0-15.0) Hct 30.6 L % (37.0-47.0) MCV 86.2 fl (80-100) MCH 27.3 pg (26-34) MCHC 31.7 L g/dl (32-36) RDW 13.6 % (11.5-14.5) Plt Count 300 k/mm3 (150-375) MPV 9.8 fl (7.4-10.4) Immature Gran % (Auto) 0.7 H % (0-0.5) Neut % (Auto) 69.4 % (45.5-73.1) Lymph % (Auto) 20.8 % (18.3-44.2) [place] % (Auto) 7.3 % (2.6-8.5) Eos % (Auto) 1.6 % (0-4.4) Baso % (Auto) 0.2 % (0.2-1.2) Lymph # (Auto) 2.08 K/mm3 (0.9-3.2) [place] # (Auto) 0.7 H K/mm3 (0.1-0.6) Eos # (Auto) 0.2 K/mm3 (0-0.3) Baso # (Auto) 0.0 K/mm3 (0.0-0.1) Abs Immat Gran (auto) 0.07 H K/mm3 (0.00-0.031) Absolute Neuts (auto) 6.9 H K/mm3 (1.3-6.7) Absolute Nucleated RBC 0.0 K/mm3 (0.0-0.012) Nucleated RBC % 0.0 % (0.0-0.2) RPR Pending Blood Type O Positive Antibody Screen Negative : gestational age HCG: positive Patient hx anesthesia problems: none Family hx anesthesia problems: none Results Review: All pre-operative results and documents have been reviewed as part of the pre-operative evaluation. [facility] Past Medical History Medical History ADHD Anxiety and depression GERD (gastroesophageal reflux disease) Obesity POTS (postural orthostatic tachycardia syndrome) PTSD (post-traumatic stress disorder) (vaginal after ) Surgical History Surgical History No pertinent past surgical history Family History Family History Father H/O heart bypass surgery Social History Social History Smoking status: Never smoker Second hand tobacco smoke exposure: No Substance use: never Do You Feel Safe in your Home?: Yes Lack of Transportation: No Lack of Food: Never True Current Housing: I Have Housing Concerned About Future Housing: No Difficulty Paying Gas/Electric Bills: No Difficulty Paying for Meds: No Currently Unemployed: No Education: Trade/Vocational Certificate Difficulty w/ Childcare or Family Care: No Living arrangements: with family Gender identity (if verbalized by the patient): Female Sexual Orientation (if Verbalized by the Patient): Straight or Heterosexual Spiritual care concerns: No Exam Day of Procedure 08/20/23 03:22 Jovi
[2023-08-20] MEDS: fentaNYL CITRATE INJ (*CRX) 100 MCG/2 ML VIAL 50 MCG IV PUSH ×2 (05:12→06:43)
[2023-08-20] MEDS: OXYTOCIN 30 UNITS/NS 500 ML 30 UNITS/500 ML BAG IV CONT (05:15)
--- NOTE | 2023-08-20 07:18 | WPDANESEPP ---
Anes - Eval Pre Procedure Procedure: Labor Epidural Date/Time: 08/20/23 07:18 Surgeon: Naye Preop Diagnosis: Labor Pain Pre Op Diagnosis: Leaking Fluid Patient Data Age: 27 Gender: F Height: 1.85 m Weight: 122.47 kg Last Vital Signs Temp 36.1 C L 08/20/23 05:20 Pulse 81 08/20/23 07:16 Resp 16 08/20/23 05:20 BP 116/44 L 08/20/23 07:16 Pulse Ox 96 08/20/23 07:16 O2 Del Method Room Air 08/19/23 22:13 Allergies Allergy/AdvReac Type Severity Reaction Status Date / Time No Known Allergies Allergy Verified 08/05/23 13:25 Home Medications Medication Instructions Recorded Confirmed Type fluoxetine 20 mg capsule (Prozac) 60 mg PO DAILY 06/12/21 08/05/23 History lisdexamfetamine 50 mg capsule 50 mg PO DAILY 07/19/22 08/05/23 History (Vyvanse) aspirin 81 mg tablet 81 mg PO DAILY 07/11/23 08/05/23 History vit no.133-ferrous 1 tablet PO DAILY 07/11/23 08/05/23 History fumarate 28 mg-folic acid 800 mcg tablet () ngwrnuzhhb-vfjbquqjbklug-cekkohfe 1 cap PO Q4H PRN Migraine Headache 07/16/23 08/05/23 History 50 mg-300 mg-40 mg capsule ferrous sulfate 142 mg (45 mg 142 mg PO DAILY 07/16/23 08/05/23 History iron) tablet,extended release Laboratory Tests 08/19/23 08/19/23 22:12 22:13 WBC 10.0 K/mm3 (4.5-10.0) RBC 3.55 L M/mm3 (4.2-5.4) Hgb 9.7 L g/dL (12.0-15.0) Hct 30.6 L % (37.0-47.0) MCV 86.2 fl (80-100) MCH 27.3 pg (26-34) MCHC 31.7 L g/dl (32-36) RDW 13.6 % (11.5-14.5) Plt Count 300 k/mm3 (150-375) MPV 9.8 fl (7.4-10.4) Immature Gran % (Auto) 0.7 H % (0-0.5) Neut % (Auto) 69.4 % (45.5-73.1) Lymph % (Auto) 20.8 % (18.3-44.2) [place] % (Auto) 7.3 % (2.6-8.5) Eos % (Auto) 1.6 % (0-4.4) Baso % (Auto) 0.2 % (0.2-1.2) Lymph # (Auto) 2.08 K/mm3 (0.9-3.2) [place] # (Auto) 0.7 H K/mm3 (0.1-0.6) Eos # (Auto) 0.2 K/mm3 (0-0.3) Baso # (Auto) 0.0 K/mm3 (0.0-0.1) Abs Immat Gran (auto) 0.07 H K/mm3 (0.00-0.031) Absolute Neuts (auto) 6.9 H K/mm3 (1.3-6.7) Absolute Nucleated RBC 0.0 K/mm3 (0.0-0.012) Nucleated RBC % 0.0 % (0.0-0.2) RPR Pending Blood Type O Positive Antibody Screen Negative : gestational age (TIMI 09/02/22, , ) HCG: positive Patient hx anesthesia problems: none Family hx anesthesia problems: none Results Review: All pre-operative results and documents have been reviewed as part of the pre-operative evaluation. REPLACED BY [facility] Past Medical History Medical History ADHD Anxiety and depression GERD (gastroesophageal reflux disease) Obesity POTS (postural orthostatic tachycardia syndrome) PTSD (post-traumatic stress disorder) (vaginal after ) Surgical History Surgical History No pertinent past surgical history Family History Family History Father H/O heart bypass surgery Social History Social History Smoking status: Never smoker Second hand tobacco smoke exposure: No Substance use: never Do You Feel Safe in your Home?: Yes Lack of Transportation: No Lack of Food: Never True Current Housing: I Have Housing Concerned About Future Housing: No Difficulty Paying Gas/Electric Bills: No Difficulty Paying for Meds: No Currently Unemployed: No Education: Trade/Vocational Certificate Difficulty w/ Childcare or Family Care: No Living arrangements: with family Gender identity (if verbalized by the patient): Female Sexual Orientation (if Verbalized by the Patient): Straight or Heterosexual Spiritual care concerns: No Exam
--- NOTE | 2023-08-20 07:35 | WPDOBADMIT ---
Obstetrics - Admit Note Admission Note: record reviewed. No pertinent additions to the history and/or any subsequent changes in the physical findings that are not consistent with the expected course of the were found. Additions to the history and/or subsequent changes in the physical findings follow. SROM, hx x 2, IUPC placed SVE7//100
[2023-08-20] MEDS: LACTATED RINGERS 1,000 ML 125 ML IV CONT (07:53)
[2023-08-20] MEDS: ONDANSETRON INJ 4 MG/2 ML VIAL IV PUSH (08:19)
--- NOTE | 2023-08-20 10:09 | P.PCNOB_ITS ---
OB - Vaginal Delivery Note Procedure Delivery date: 08/20/23 Delivery augmentation: Pitocin Delivery monitor: External FHT and Internal FHT Route of delivery: Episiotomy description: None Laceration Description: None Specimen: Yes Quantitative Blood Loss (ml): 200 Anesthesia type: Epidural Disposition: Floor Complications: None [place] Baby Date of : 08/20/23 Weeks of gestation at delivery: 38 gender: Female Weight (pounds): 8 Weight (ounces): 5 presentation: vertex position: Right Occiput Anterior Placenta delivery description: Spontaneous Cord Vessel Description: 3 Vessels and Delayed Cord Clamping score one minute: 9 score five minutes: 9 Narrative: mother and baby skin to skin and in stable vondition
[2023-08-20] MEDS: OXYTOCIN 30 UNITS/NS 500 ML 30 UNITS/500 ML BAG 125 UNITS IV CONT (10:36)
[2023-08-20] MEDS: IBUPROFEN 600 MG TABLET PO ×2 (10:58→17:04)
[2023-08-20] MEDS: ACETAMINOPHEN 325 MG TABLET 650 MG PO (10:58)
[2023-08-20] MEDS: WITCH HAZEL 40 PADS 1 PAD TOPICAL ×2 (10:59→13:04)
[2023-08-20] MEDS: BENZOCAINE 20% AER SPR (*SP) 56 GM CAN 1 SPRAY TOPICAL ×2 (10:59→13:04)
[2023-08-20 12:20] LABS: Rapid Plasma Reagin Non-Reactive (NonReactive)
[2023-08-20] MEDS: POLYSACCHARIDE IRON COMPLEX 150 MG CAPSULE PO (17:03)
[2023-08-20] MEDS: DOCUSATE SODIUM 100 MG CAPSULE PO (17:04)
--- NOTE | 2023-08-20 17:56 | OBPPTRN ---
1329 Patient transferred to post room #284 via W/C. Support person present. Oriented to unit, room, information board, rooming in, admission packet and security measures. Patient verbalizes understanding.
[2023-08-21] MEDS: ACETAMINOPHEN 325 MG TABLET 650 MG PO (05:01)
[2023-08-21 05:17] LABS: Hematocrit 29.2 % (37.0-47.0); Hemoglobin 9.4 g/dL (12.0-15.0)
[2023-08-21 07:45] VITALS: BP 122/60; PULSE 64; RESP 16; TEMP 37.3; O2SAT 100
--- NOTE | 2023-08-21 07:51 | PM.OBPNVD ---
OB - PN: Subj Subjective Date/time seen: 08/21/23 07:51 Interval history: pp day 1 doing well baby girl doing well vss OB - PN: Obj Data Labs 08/21/23 05:09 Labs: Laboratory Results - last 24 hr 08/19/23 08/21/23 22:12 05:09 Hgb 9.4 L Hct 29.2 L RPR Non-reactive OB - PN A/P Plan day: 1 Plan: routine care Time Spent With Patient Time: Total time spent is greater than 50% in coordination of care (as documented) at patient's floor/unit and/or counseling patient: Review of Systems Review of Systems: All systems reviewed & are unremarkable except as noted in HPI and below Exam Const: General: cooperative and healthy appearing Resp: Effort & Inspection: normal respiratory effort Cardio: Rate: regular rate Rhythm: regular rhythm Skin: General skin exam: normal color Neuro: General: patient oriented x3
[2023-08-21] MEDS: POLYSACCHARIDE IRON COMPLEX 150 MG CAPSULE PO ×2 (09:16→17:18)
[2023-08-21] MEDS: FLUoxetine HCL 20 MG CAPSULE 60 MG PO (09:16)
[2023-08-21] MEDS: DOCUSATE SODIUM 100 MG CAPSULE PO ×2 (09:16→17:18)
[2023-08-21] MEDS: MULTIVIT/MIN/PREN/FOL AC/IRON TABLET 1 TAB PO (09:16)
--- NOTE | 2023-08-21 11:09 | WPDANLDPN2 ---
Anes-Prog Note L&D Date/Time: 08/21/23 11:09 Comfortable throughout: labor and delivery Neuraxial method: epidural Epidural/Spinal procedure site: clean & non-tender Neuro status: Neuro function grossly intact. Cardiovascular status: normal Respiratory status: normal Airway patency: baseline Mental status: baseline Post-Op hydration status: normal Vital Signs: Last Vital Signs Temp 37.3 C 08/21/23 07:45 Pulse 64 08/21/23 07:45 Resp 16 08/21/23 07:45 BP 122/60 08/21/23 07:45 Pulse Ox 100 08/21/23 07:45 O2 Del Method Room Air 08/21/23 08:04 Pain score (VAS): 2/10 Post-procedural complaints: none Patient feedback: Patient satisfied with anesthetic care.
[2023-08-21 19:30] VITALS: BP 126/73; PULSE 72; RESP 16; TEMP 36.9; O2SAT 98
[2023-08-22] MEDS: IBUPROFEN 600 MG TABLET PO (02:24)
--- NOTE | 2023-08-22 07:40 | PM.OBPNVD ---
OB - PN: Subj Subjective Date/time seen: 08/22/23 07:40 Interval history: pp day 2 doing well baby girl doing well vss plan d/c home OB - PN: Obj Data Labs 08/21/23 05:09 OB - PN A/P Plan day: 2 Plan: routine care and discharge home Time Spent With Patient Time: Total time spent is greater than 50% in coordination of care (as documented) at patient's floor/unit and/or counseling patient: Review of Systems Review of Systems: All systems reviewed & are unremarkable except as noted in HPI and below Exam Const: General: cooperative Resp: Effort & Inspection: normal respiratory effort Cardio: Rate: regular rate GI: Other: soft Back/Spine/Pelvis: Back: no CVA tenderness Skin: General skin exam: normal color Neuro: General: patient oriented x3 Psych: Appearance: grossly normal
--- NOTE | 2023-08-22 07:42 | P.DS_ITS ---
DS: Admitting Diagnosis Discharge Date 08/22/23 Admitting Diagnosis labor DS: Discharge Diagnosis Discharge Diagnosis (1) Vaginal delivery: Code(s): O80 - Encounter for full-term uncomplicated delivery Status: Acute OB - DS: Summary OB Procedures : None OB Procedures Intrapartum: Spontaneous Vag Delivery OB Procedures: : None Peripartum Data Laceration Description: None Episiotomy description: None Time Spent with Patient Time attestation: Total time spent providing and/or coordinating discharge services: Discharge Plan Discharge Attending physician on discharge: Juan David Yancey Discharging Clinician: Virginia Molina Patient Disposition: Home, Self-Care Activity: pelvic rest Diet: regular Patient Instructions: Antibiotic Form Stand Alone Forms: General Discharge Information Follow-up/Referrals: Virginia Molina CNM [Certified Nurse Product Applications Scientist] - 4 Weeks Discharge Medications: New ibuprofen 600 mg Tablet 600 mg PO Q6H PRN (Reason: Cramping) Qty: 30 0RF Continued fluoxetine [Prozac] 20 mg capsule 60 mg PO DAILY lisdexamfetamine [Vyvanse] 50 mg capsule 50 mg PO DAILY ferrous sulfate 142 mg (45 mg iron) Tablet Extended Release 142 mg PO DAILY 28-800 mg-mcg Tablet 1 tablet PO DAILY Discontinued hmbbgxuhwa-fekpwrutiyfqw-emxm 50-300-40 mg capsule 1 cap PO Q4H PRN (Reason: Migraine Headache) aspirin 81 mg Tablet 81 mg PO DAILY Date of admission: 08/19/23 20:45 Primary Care Provider: Fiona,Gerry Trujillo Admitting Provider: Juan David Yancey Attending physician on admission: Juan David Yancey Condition: Stable
[2023-08-22 08:05] VITALS: BP 112/63; PULSE 61; RESP 16; TEMP 36.9; O2SAT 99
[2023-08-22] MEDS: MULTIVIT/MIN/PREN/FOL AC/IRON TABLET 1 TAB PO (09:22)
[2023-08-22] MEDS: DOCUSATE SODIUM 100 MG CAPSULE PO (09:22)
[2023-08-22] MEDS: POLYSACCHARIDE IRON COMPLEX 150 MG CAPSULE PO (09:22)
[2023-08-22] MEDS: FLUoxetine HCL 20 MG CAPSULE 60 MG PO (09:22)
[2023-08-22] MEDS: TETANUS,DIPHTHERIA,AC PERTUSSIS ADULT (0.5 ML) BOOSTRIX IM (10:25)
--- NOTE | 2023-08-22 13:44 | PC.NURSE ---
[id number] Mother led the conversation with her experience so far, plan to feed her , and her ability to independently latch optimally without discomfort. Reminded mother to use good handwashing technique to prevent infection. Mother is feeding appropriately for growth of infant and understands stimulating to eat if needed. Infant has had appropriate feedings in the last 24 hours meets the outcomes for weight, output, blood sugar and jaundice at this time. Mother states she is confident to continue effectively her at home, when to call for assistance, denies any additional assistance or education at this time. Reinforced understanding of milk production, transition of milk, signs of adequate intake, transition of stool, prevention/relief of engorgement, plugged ducts, mastitis, responsive watching for feeding cues, the different methods of stimulating to breastfeed 1-3 hours after the start of the last feeding, community resources, and when to call a provider using the resource of the mom and baby guide. Mother voiced understanding of the education shared.
[2023-08-23 13:57] VITALS: BP 127/84; PULSE 87; RESP 18; TEMP 37.2; O2SAT 99
== END 2023-08-22 11:05 | disposition home or self-care (01) | DRG 807 ==
LOC: ANHLDR 21:42 → ANHOB2 08-20 13:52
PROVIDERS: Admitting Provider Obstetrics & Gynecology; PCP Family Medicine; Referring Provider Advanced Practice Midwife; Visit Provider Obstetrics & Gynecology
DX: O34.219 Maternal care for unspecified type scar from previous cesarean delivery (principal); Z37.0 Single live birth; O99.824 Streptococcus B carrier state complicating childbirth; O77.0 Labor and delivery complicated by meconium in amniotic fluid; Z3A.38 38 weeks gestation of pregnancy
CPT/HCPCS: 36415; 85014; 85018; 85025; 86592; 86850; 86900; 86901; 88307; 90715; A9270; J0290; J2405; J2590; J2795; J3010; J7120

== ENCOUNTER 2023-09-03 01:25 | Day surgery (SDC) | payer OTHER, SELFPAY ==
[2023-09-02 11:26] VITALS: BMI 32.7
--- NOTE | 2023-09-02 11:31 | PC.NURSE ---
Report to the Outpatient Waiting Room, entrance under the green pavilion located off [facility], at time 0600 on date 09/03/23. Planned Procedure Time: 0730. Time changes happen often and if your time is changed the preop area will call you the afternoon before. - You and your visitor will be asked to self-screen and do not enter if you have any COVID symptoms. - A mask is optional within the hospital at this time. Patients may have clear liquids (water, carbonated beverages, clear teas, apple juice) until 3 hours prior to surgery with a maximum of 20 ounces. - No food from midnight until time of surgery Take the following medications with a SIP of water the morning of surgery: FLUOXETINE DO NOT STOP ANY OF YOUR OTHER PRESCRIPTION MEDICATIONS PRIOR TO SURGERY ?EXCEPT THE FOLLOWING Medications to discontinue per physician: N/A (SURGERY TOMORROW) Date to take last dose: N/A Please no make-up, nail turkish, hairspray, perfume, deodorant, or body powder the day of surgery. No jewelry (including any body piercings) or valuables the day of surgery, leave them at home. Please take a shower or bath the night before, or the morning of, surgery with an antibacterial soap. Wear comfortable, loose fitting clothing. - Jewelry must be removed prior to entering the operating room. Rings and piercings that are not removed may be cut off. - The hospital will not accept responsibility for valuables. - Please leave all valuables, including medications, at home the day of surgery. If you are going home after surgery, a licensed speedboat driver must drive you home. - NO public transportation without another adult if you receive anesthesia. - We recommend that an adult stay with you for 24 hours following discharge. - We also recommend that you do not drive, make important decision, drink alcoholic beverages, or take any drugs that were not prescribed by your health care provider for at least 24 hours after your discharge time. Follow any additional instructions given to you from your surgeon. If you or anyone in your household have experienced Covid symptoms in the past week, please notify your surgeon or the nurse liaison at the phone number below for possible testing. Telephone instructions given to PT - JENIFER STOCKTON and asked if any additional questions and then verbalized understanding. Patient advised to call surgeon office or pre surgery nurse liaison [phone] if any additional questions.
--- NOTE | 2023-09-02 14:49 | WPDANESEPPF ---
Anes - Initial Pre Proc Eval Procedure: Operation Date: 09/03/23 07:30 Proposed Procedures p Suction Dilatation and Curettage - Noe Orlando MD Date/Time: 09/02/23 14:49 Surgeon: Noe Orlando MD Pre Op Diagnosis: retained products Patient Data Age: 27 Gender: F Height: 1.85 m Weight: 112.5 kg Allergies Allergy/AdvReac Type Severity Reaction Status Date / Time No Known Allergies Allergy Verified 09/03/23 06:13 Home Medications Medication Instructions Recorded Confirmed Type fluoxetine 20 mg capsule (Prozac) 60 mg PO DAILY 06/12/21 09/02/23 History lisdexamfetamine 50 mg capsule 50 mg PO DAILY 07/19/22 09/02/23 History (Vyvanse) vit no.133-ferrous 1 tablet PO DAILY 07/11/23 09/02/23 History fumarate 28 mg-folic acid 800 mcg tablet () ibuprofen 600 mg tablet 600 mg PO Q6H PRN Cramping #30 tabs 08/22/23 09/02/23 Rx Patient hx anesthesia problems: none Family hx anesthesia problems: none Results Review: All pre-operative results and documents have been reviewed as part of the pre-operative evaluation. [facility] Past Medical History Medical History ADHD Anxiety and depression GERD (gastroesophageal reflux disease) Obesity POTS (postural orthostatic tachycardia syndrome) PTSD (post-traumatic stress disorder) (vaginal after ) Surgical History Surgical History No pertinent past surgical history Family History Family History Father H/O heart bypass surgery Social History Social History Smoking status: Never smoker Second hand tobacco smoke exposure: No Alcohol intake: never Substance use: never Substance use type: does not use Do You Feel Safe in your Home?: Yes Lack of Transportation: No Lack of Food: Never True Current Housing: I Have Housing Concerned About Future Housing: No Difficulty Paying Gas/Electric Bills: No Difficulty Paying for Meds: No Currently Unemployed: No Education: Trade/Vocational Certificate Difficulty w/ Childcare or Family Care: No Living arrangements: with family Gender identity (if verbalized by the patient): Female Sexual Orientation (if Verbalized by the Patient): Straight or Heterosexual Spiritual care concerns: No Anes - Eval Final PreProcedure Day of Procedure 09/02/23 14:49 Patient weight: obese Heart: regular rate and rhythm Lungs: clear to auscultation Airway: Mallampati scale class II Neurological: alert and oriented Last oral intake: >/= 8 hours ASA classification: II Emergent: no Anesthetic plan: proceed Anesthesia type and monitoring: general GIVS and standard monitoring Results Review: All pre-operative results and documents have been reviewed as part of the pre-operative evaluation. Informed Consent: The patient's anesthetic plan and its attendant risks and benefits were discussed with the patient/family/POA. Questions were solicited and answers provided to the satisfaction of the patient/family/POA.
[2023-09-03] MEDS: ACETAMINOPHEN 500 MG TABLET 1000 MG PO (06:15)
[2023-09-03 06:33] VITALS: BP 107/64; PULSE 63; RESP 16; TEMP 35.7; O2SAT 98
[2023-09-03] MEDS: LACTATED RINGERS 1,000 ML 30 ML IV CONT (06:36)
--- NOTE | 2023-09-03 07:18 | PM.IMHP ---
H&P: HPI History of Present Illness Date/Time: 09/03/23 07:18 Chief Complaint: retained products of conception Narrative: Patient presents 2 weeks s/p uncomplicated for increased vaginal bleeding and malodorous vaginal discharge. Denies abdominal pain, fevers, or chills. Pelvic US in office yesterday demonstrates enlarged uterus with a thickened endometrial stripe and a focal area of vascularity on the posterior wall, consistent with retained products of conception. Review of Systems Review of Systems: All systems reviewed & are unremarkable except as noted in HPI and below PMFSH Past Medical History Medical History ADHD Anxiety and depression GERD (gastroesophageal reflux disease) Obesity POTS (postural orthostatic tachycardia syndrome) PTSD (post-traumatic stress disorder) (vaginal after ) Surgical History Surgical History No pertinent past surgical history Family History Family History Father H/O heart bypass surgery Social History Social History Smoking status: Never smoker Second hand tobacco smoke exposure: No Alcohol intake: never Substance use: never Substance use type: does not use Do You Feel Safe in your Home?: Yes Lack of Transportation: No Lack of Food: Never True Current Housing: I Have Housing Concerned About Future Housing: No Difficulty Paying Gas/Electric Bills: No Difficulty Paying for Meds: No Currently Unemployed: No Education: Trade/Vocational Certificate Difficulty w/ Childcare or Family Care: No Living arrangements: with family Gender identity (if verbalized by the patient): Female Sexual Orientation (if Verbalized by the Patient): Straight or Heterosexual Spiritual care concerns: No Meds Home Medications and Allergies Home Medications Medication Instructions Recorded Confirmed Type fluoxetine 20 mg capsule (Prozac) 60 mg PO DAILY 06/12/21 09/02/23 History lisdexamfetamine 50 mg capsule 50 mg PO DAILY 07/19/22 09/02/23 History (Vyvanse) vit no.133-ferrous 1 tablet PO DAILY 07/11/23 09/02/23 History fumarate 28 mg-folic acid 800 mcg tablet () ibuprofen 600 mg tablet 600 mg PO Q6H PRN Cramping #30 tabs 08/22/23 09/02/23 Rx Allergies Allergy/AdvReac Type Severity Reaction Status Date / Time No Known Allergies Allergy Verified 09/03/23 06:13 Vital Signs Vital Signs - 24 hr 09/03/23 06:33 Temperature 96.3 F L Pulse Rate 63 Respiratory Rate 16 Blood Pressure 107/64 Pulse Oximetry 98 Oxygen Delivery Room Air Exam Const: General: comfortable and no acute distress HENMT: Mouth: Yes moist mucous membranes Eyes: General: appearance normal, both eyes and all related structures Neck: Neck: supple Resp: Effort & Inspection: normal respiratory effort Cardio: Rate: regular rate Neuro: Sensory Exam: normal sensation Extrem: General: normal to inspection Psych: Mental Status: mental status grossly normal Assessment and Plan Assessment and plan (1) Retained products of conception: Status: Acute Assessment and Plan: r/b/a of suction D&C for removal of retained products of conception were reviewed with the patient, including risk of infection, bleeding and injury to surrounding structures. Patient voices understanding and was given the opportunity to ask further questions. Will proceed with suction D&C for retained products of conception s/p 08/20/23.
--- NOTE | 2023-09-03 07:31 | WPDHPUPDATE1 ---
History and Physical Update Update Date/Time: 09/03/23 07:31 History and Physical has been reviewed, including an updated exam of the patient. There are NO changes in the patient's condition. Risks, benefits, and alternatives have been discussed and questions answered. Patient agrees to proceed with procedure.
[2023-09-03] MEDS: LIDO 1%/EPINEPHRINE 1:100,000 50 ML VIAL 10 ML INFILTRATE (07:55)
[2023-09-03] MEDS: KETOROLAC 30 MG/ML VIAL (*BKC) IV PUSH (07:59)
[2023-09-03 08:11] VITALS: BP 110/59; PULSE 76; RESP 12; O2SAT 98
--- NOTE | 2023-09-03 08:11 | P.OP_ITS ---
Procedure Note - Detailed Date of Procedure 09/03/23 Pre-op Diagnosis retained products Post-op Diagnosis Same Procedure Performed Suction D&C under ultrasound guidance Surgeon Noe Orlando MD Anesthesia MAC and Local Indications retained products of conception Findings Enlarged uterus with large amount of necrotic retained products, uterus contracted and firm at the completion of the procedure Description of Procedure The patient was then taken to the operating room with IVFs running. She was placed in the dorsal supine position where she received MAC without any difficulty.?? The patient was placed in the dorsal lithotomy position using halina stirrups. EUA revealed the above findings. She was then prepped and draped in a normal sterile fashion. A time-out procedure was performed and all members of the OR team agreed on the patient and plan. A bivalved speculum was then inserted into the patient's vagina.? The anterior lip of the cervix was grasped with a ring forceps. The suction curette was te sted outside the patient and found to be working properly.? The curette was then advanced into the intrauterine cavity and a moderate amount of cloudy brown discharge was expelled from the uterus. The curette was advanced to the fundus, then suction was started and the curette was circumferentially removed.?All products of conception were removed until little tissue was seen passing through the tubing.? A ultrasound was performed which confirmed a thin endometrial stripe. Bleeding was improved. The specimen was sent to pathology.? The ring forceps was removed from the anterior lip of the cervix.? The bivalve speculum was removed.? The patient tolerated the procedure well.? Sponge, lap, needle, and instrument counts were correct X3.? The patient was awakened from anesthesia and taken to the recovery room in stable condition. Antibiotics and methergine x1 were ordered to be given prior to discharge. Estimated Blood Loss 200 Complications No immediate complications Condition Stable Disposition Same day
[2023-09-03 08:40] VITALS: BP 122/56; PULSE 69; RESP 16; O2SAT 100
[2023-09-03] MEDS: METHYLERGONOVINE MALEATE 0.2 MG TABLET PO (08:49)
[2023-09-03 09:10] VITALS: BP 110/63; PULSE 60; RESP 16
[2023-09-03] MEDS: DOXYCYCLINE HYCLATE 100 MG TABLET PO (09:34)
== END 2023-09-03 09:38 | disposition home or self-care (01) ==
PROVIDERS: PCP Family Medicine; Visit Provider Obstetrics & Gynecology
PROC: (CPT 59160; principal; 2023-09-03 07:30)
DX: O73.1 Retained portions of placenta and membranes, without hemorrhage (principal)
CPT/HCPCS: 59160; 88305; A9270; J1100; J1885; J2250; J2405; J2704; J3010; J7120

== ENCOUNTER 2023-09-12 12:30 | Inpatient (IN) | payer OTHER, SELFPAY ==
[2023-09-11] VITALS (33 sets, daily range): BP systolic 78–131; BP diastolic 45–85; PULSE 46–113; RESP 9–24; TEMP 36.1–37.2; O2SAT 90–100; BMI 31.8
--- NOTE | 2023-09-11 13:09 | PC.NURSE ---
Called Dr. Yancey for orders. Pt send from office for direct admit. Orders received.
[2023-09-11 13:58] LABS: Basophils Percent Auto 0.5 % (0.2-1.2); Eosinophils Absolute Auto 0.2 K/mm3 (0-0.3); Eosinophils Percent Auto 3.9 % (0-4.4); Hematocrit 33.4 % (37.0-47.0); Hemoglobin 10.6 g/dL (12.0-15.0); Immature Granulocyte Absolute 0.01 K/mm3 (0.00-0.031); Immature Granulocyte Percent A 0.2 % (0-0.5); Lymphocytes Absolute Auto 1.87 K/mm3 (0.9-3.2); Lymphocytes Percent Auto 31.8 % (18.3-44.2); Mean Corpuscular HGB Conc 31.7 g/dl (32-36); Mean Corpuscular Hemoglobin 27.2 pg (26-34); Mean Corpuscular Volume 85.6 fl (80-100); Mean Platelet Volume 9.2 fl (7.4-10.4); Monocytes Absolute Auto 0.4 K/mm3 (0.1-0.6); Neutrophils Absolute Auto 3.4 K/mm3 (1.3-6.7); Neutrophils Percent Auto 57.6 % (45.5-73.1); Platelet Count Result 390 k/mm3 (150-375); Red Cell Distribution Width 14.5 % (11.5-14.5); White Blood Count 5.9 K/mm3 (4.5-10.0)
[2023-09-11 14:11] LABS: Alanine Aminotransferase 37 U/L (6-35); Albumin Level 4.4 g/dL (3.5-5.1); Alkaline Phosphatase 113 U/L (38-126); Anion Gap 10 mmol/L (8-16); Aspartate Amino Transferase 47 U/L (14-36); Bilirubin,Total 0.5 mg/dL (0.2-1.3); Blood Urea Nitrogen 11 mg/dL (7-17); Calcium 9.3 mg/dL (8.4-10.2); Carbon Dioxide 21 mmol/L (22-30); Chloride 109 mmol/L (98-107); Estimated CRCL calculation 147 ml/min; Estimated Glomerular Filt Rate > 60; Glucose 90 mg/dL (65-110); Potassium 4.3 mmol/L (3.4-5.0); Sodium 140 mmol/L (137-145)
[2023-09-11] MEDS: AMPICILLIN 2 GM/NS 100 ML 2 GM/100 ML BAG IVPB ×2 (14:20→20:09)
--- NOTE | 2023-09-11 14:39 | WPDANESEPPF ---
Anes - Initial Pre Proc Eval Procedure: Operation Date: 09/11/23 15:00 Proposed Procedures p Suction Dilation and Curettage - Juan David Yancey MD Date/Time: 09/11/23 14:39 Surgeon: Juan David Yancey MD Pre Op Diagnosis: post pardum bleeding Patient Data Age: 27 Gender: F Height: 1.85 m Weight: 109.5 kg Last Vital Signs Pulse 67 09/11/23 13:09 BP 131/77 09/11/23 13:09 Allergies Allergy/AdvReac Type Severity Reaction Status Date / Time No Known Allergies Allergy Verified 09/03/23 06:13 Home Medications Medication Instructions Recorded Confirmed Type fluoxetine 20 mg capsule (Prozac) 60 mg PO DAILY 06/12/21 09/02/23 History lisdexamfetamine 50 mg capsule 50 mg PO DAILY 07/19/22 09/02/23 History (Vyvanse) vit no.133-ferrous 1 tablet PO DAILY 07/11/23 09/02/23 History fumarate 28 mg-folic acid 800 mcg tablet () ibuprofen 600 mg tablet 600 mg PO Q6H PRN Cramping #30 tabs 08/22/23 09/02/23 Rx metronidazole 500 mg tablet 500 mg PO Q12H #10 tabs 09/13/23 Rx Laboratory Tests 09/11/23 13:48 WBC 5.9 K/mm3 (4.5-10.0) RBC 3.90 L M/mm3 (4.2-5.4) Hgb 10.6 L g/dL (12.0-15.0) Hct 33.4 L % (37.0-47.0) MCV 85.6 fl (80-100) MCH 27.2 pg (26-34) MCHC 31.7 L g/dl (32-36) RDW 14.5 % (11.5-14.5) Plt Count 390 H k/mm3 (150-375) MPV 9.2 fl (7.4-10.4) Immature Gran % (Auto) 0.2 % (0-0.5) Neut % (Auto) 57.6 % (45.5-73.1) Lymph % (Auto) 31.8 % (18.3-44.2) [place] % (Auto) 6.0 % (2.6-8.5) Eos % (Auto) 3.9 % (0-4.4) Baso % (Auto) 0.5 % (0.2-1.2) Lymph # (Auto) 1.87 K/mm3 (0.9-3.2) [place] # (Auto) 0.4 K/mm3 (0.1-0.6) Eos # (Auto) 0.2 K/mm3 (0-0.3) Baso # (Auto) 0.0 K/mm3 (0.0-0.1) Abs Immat Gran (auto) 0.01 K/mm3 (0.00-0.031) Absolute Neuts (auto) 3.4 K/mm3 (1.3-6.7) Absolute Nucleated RBC 0.0 K/mm3 (0.0-0.012) Nucleated RBC % 0.0 % (0.0-0.2) Sodium 140 mmol/L (137-145) Potassium 4.3 mmol/L (3.4-5.0) Chloride 109 H mmol/L (98-107) Carbon Dioxide 21 L mmol/L (22-30) Anion Gap 10 mmol/L (8-16) BUN 11 mg/dL (7-17) Creatinine 0.70 mg/dL (0.7-1.0) Estim Creat Clear Calc 147 ml/min Estimated GFR > 60 (59 - ) Glucose 90 mg/dL (65-110) Calcium 9.3 mg/dL (8.4-10.2) Total Bilirubin 0.5 mg/dL (0.2-1.3) AST 47 H U/L (14-36) ALT 37 H U/L (6-35) Alkaline Phosphatase 113 U/L (38-126) Total Protein 8.0 g/dL (6.3-8.2) Albumin 4.4 g/dL (3.5-5.1) Patient hx anesthesia problems: none Family hx anesthesia problems: none Results Review: All pre-operative results and documents have been reviewed as part of the pre-operative evaluation. [facility] Past Medical History Medical History ADHD Anxiety and depression GERD (gastroesophageal reflux disease) Obesity POTS (postural orthostatic tachycardia syndrome) PTSD (post-traumatic stress disorder) (vaginal after ) Surgical History Surgical History No pertinent past surgical history Family History Family History Father H/O heart bypass surgery Social History Social History Smoking status: Never smoker Second hand tobacco smoke exposure: No Alcohol intake: never Substance use: never Substance use type: does not use Do You Feel Safe in your Home?: Yes Lack of Transportation: No Lack of Food: Never True Current Housing: I Have Housing Concerned About Future Housing: No Difficulty Paying Gas/Electric Bills: No Difficulty Paying for Meds: No Currently Unemployed: No Education: Trade/Vocational Certificate Difficulty w/ Childcare or Family Care: No
[2023-09-11] MEDS: LACTATED RINGERS 1,000 ML 150 ML IV CONT (14:46)
--- NOTE | 2023-09-11 15:05 | PC.NURSE ---
Pt taken to pre op per stretcher.
--- NOTE | 2023-09-11 15:53 | PM.IMHP ---
H&P: HPI History of Present Illness Date/Time: 09/11/23 15:53 Chief Complaint: Vaginal bleeding Narrative: 27-year-old female in the immediate post period With heavy vaginal bleeding. Ultrasound was performed - Large fluid and blood clot collection within the intrauterine cavity. Patient has an immediate history possible endometritis. She continues to bleed and heavy manner. She presented the office today for heavy vaginal bleeding. Dizziness. Fatigue. She denies any nausea, vomiting, fever, chills. She denies any chest pain shortness of breath Review of Systems Review of Systems: All systems reviewed & are unremarkable except as noted in HPI and below Constitutional: Constitutional: Denies chills, Denies fatigue, Denies fever(s) and Denies weakness Eyes: Eyes: Denies blurry vision, Denies change in vision, Denies loss of peripheral vision, Denies loss of vision, Denies other visual disturbances and Denies eye pain ENT: Denies vertigo, Denies dizziness, Denies hearing loss, Denies mouth pain, Denies nasal obstruction, Denies neck mass and Denies neck pain Cardiovascular: Cardiovascular: Denies chest pain, Denies diaphoresis, Denies syncope, Denies leg edema and Denies dyspnea Respiratory: Respiratory: Denies chest congestion, Denies cough, Denies hemoptysis, Denies dyspnea and Denies wheezing Gastrointestinal: Gastrointestinal: Denies abdominal pain, Denies constipation, Denies diarrhea, Denies nausea and Denies vomiting Genitourinary: Genitourinary: Denies hematuria, Denies change in libido, Denies nocturia, Denies genital lesions, Denies flank pain and Denies urinary urgency Musculoskeletal: Musculoskeletal: Denies abnormal gait, Denies back pain, Denies myalgias, Denies arthralgias, Denies joint swelling, Denies muscle weakness and Denies neck pain Integumentary/Breasts: Skin/Breast: Denies swelling, Denies breast pain, Denies breast mass, Denies dry skin, Denies nipple discharge, Denies unusual bruising and Denies jaundice Neurologic: Denies Neuro-related abnormal movements, Denies Abnormal speech present, Denies abnormal gait, Denies behavioral changes, Denies confusion, Denies vertigo, Denies dizziness, Denies syncope, Denies loss of vision, Denies memory loss, Denies convulsions and Denies weakness Psychiatric: Psychiatric: Denies abnormal sleep pattern, Denies behavioral changes, Denies change in libido, Denies confusion, Denies depression, Denies anhedonia and Denies memory loss Endocrine: Endocrine: Reports no additional endocrine complaints, Denies change in libido and Denies fatigue Hematologic/Lymphatic: Hematologic/Lymphatic: Reports no additional hematologic/lymphatic complaints Allergic/Immunologic: Allergic/Immunologic: Reports no additional allergic/immunologic complaints and Denies wheezing PMFSH Past Medical History Medical History ADHD Anxiety and depression GERD (gastroesophageal reflux disease) Obesity POTS (postural orthostatic tachycardia syndrome) PTSD (post-traumatic stress disorder) (vaginal after ) Surgical History Surgical History No pertinent past surgical history Family History Family History Father H/O heart bypass surgery Social History Social History Smoking status: Never smoker Second hand tobacco smoke exposure: No Alcohol intake: never Substance use: never Substance use type: does not use Do You Feel Safe in your Home?: Yes Lack of Transportation: No Lack of Food: Never True Current Housing: I Have Housing Concerned About Future Housing: No Difficulty Paying Gas/Electric Bills: No Difficulty Paying for Meds: No Currently Unemployed: No Education: Trade/Vocational Certificate Difficulty w/ Childcare or Family
--- NOTE | 2023-09-11 15:57 | WPDHPUPDATE1 ---
History and Physical Update Update Date/Time: 09/11/23 15:57 History and Physical has been reviewed, including an updated exam of the patient. There are NO changes in the patient's condition. Risks, benefits, and alternatives have been discussed and questions answered. Patient agrees to proceed with procedure.
[2023-09-11] MEDS: metroNIDAZOLE 500 MG/ISO 100ML 500 MG/100 ML BAG 100 MG IVPB (16:00)
[2023-09-11] MEDS: LACTATED RINGERS 1,000 ML 30 ML IV CONT ×2 (16:00→18:05)
[2023-09-11] MEDS: LIDOCAINE HCL 1% LOCAL INJ 10 ML VIAL INFILTRATE (16:30)
[2023-09-11 18:02] LABS: Alanine Aminotransferase 28 U/L (6-35); Albumin Level 3.1 g/dL (3.5-5.1); Alkaline Phosphatase 98 U/L (38-126); Anion Gap 6 mmol/L (8-16); Aspartate Amino Transferase 33 U/L (14-36); Bilirubin,Total 0.3 mg/dL (0.2-1.3); Blood Urea Nitrogen 10 mg/dL (7-17); Calcium 8.2 mg/dL (8.4-10.2); Carbon Dioxide 22 mmol/L (22-30); Chloride 111 mmol/L (98-107); Estimated CRCL calculation 147 ml/min; Estimated Glomerular Filt Rate > 60; Glucose 92 mg/dL (65-110); Potassium 3.7 mmol/L (3.4-5.0); Sodium 139 mmol/L (137-145)
[2023-09-11 18:10] LABS: Fibrinogen 369 mg/dl (215-510)
[2023-09-11 18:12] LABS: Basophils Percent Auto 0.3 % (0.2-1.2); Eosinophils Absolute Auto 0.3 K/mm3 (0-0.3); Eosinophils Percent Auto 4.1 % (0-4.4); Hematocrit 27.6 % (37.0-47.0); Hemoglobin 8.4 g/dL (12.0-15.0); Immature Granulocyte Absolute 0.02 K/mm3 (0.00-0.031); Immature Granulocyte Percent A 0.3 % (0-0.5); Lymphocytes Absolute Auto 2.38 K/mm3 (0.9-3.2); Lymphocytes Percent Auto 37.7 % (18.3-44.2); Mean Corpuscular HGB Conc 30.4 g/dl (32-36); Mean Corpuscular Volume 88.7 fl (80-100); Mean Platelet Volume 9.6 fl (7.4-10.4); Monocytes Absolute Auto 0.5 K/mm3 (0.1-0.6); Monocytes Percent Auto 8.2 % (2.6-8.5); Neutrophils Absolute Auto 3.1 K/mm3 (1.3-6.7); Neutrophils Percent Auto 49.4 % (45.5-73.1); Platelet Count Result 324 k/mm3 (150-375); Red Blood Count 3.11 M/mm3 (4.2-5.4); Red Cell Distribution Width 14.4 % (11.5-14.5); White Blood Count 6.3 K/mm3 (4.5-10.0)
[2023-09-11 18:14] LABS: D Dimer 1.16 ug/mL (<0.48)
--- NOTE | 2023-09-11 18:28 | P.OP_ITS ---
Procedure Note - Detailed Date of Procedure 09/11/23 Pre-op Diagnosis post pardum bleeding Post-op Diagnosis Same Procedure Performed Suction D&C Surgeon Juan David Yancey MD Anesthesia MAC Indications missed Findings normal-appearing vulva vagina and cervix - . Large amount of clots within the intrauterine cavity that was evacuated. Within the clots that may have been organized placental tissue or maternal tissue. Description of Procedure the patient was taken the operating room. She was prepped and draped in dorsal lithotomy position after induction of mac anesthesia. A speculum was placed in the vagina. Cervix grasped with tenaculum. A 12 [place] curette curved was used to evacuate the uterus. The curette was introduced and vacuum was applied. The curette was removed over all surfaces of the intrauterine cavity multiple times. This was done until all the surfaces were clear and had the familiar grainy texture they can be felt through the instrument. Repetitive evacuation of the uterus was performed. This was occurred for about 15 minutes. Ultrasound was called for. Ultrasound was brought to the room. In between evacuation of the uterus the intrauterine cavity could be seen in real-time filling with blood. At that time medications were applied. For 30 minutes various medications were used. Hemabate was used 1st. After several minutes, placed in the rectum, 1000 mg. Repetitive evacuation of the uterus was performed using the curette under vacuum. Patient was later given Methergine. The Daksha vacuum device was called for. About an hour into the procedure the Daksha was applied. Blood was called for earlier in the procedure. DIC labs were obtained. Stat CBC CMP were obtained as well. The gated was inserted the intrauterine cavity. The balloon was blown up and the vacuum was applied. This seemed to temporize the bleeding. We observed for another half an hour to 45 minutes and bleeding has resolved. The instruments , speculum, tenaculum, and curette were removed for insertion of the Daksha.. The patient tolerated the procedure well. She was taken recovery room stable condition. Blood was administered and PACU. FFP was administered to PACU. Estimated Blood Loss 1,900 Drains No Packing No Pathology Yes Complications Other complications ( Hemorrhage, intraoperative) Condition Stable Disposition PACU
--- NOTE | 2023-09-11 20:35 | PC.NURSE ---
Called Dr Yancey, updated on patient status. Patient good to have clear liquids until midnight, NPO after midnight. LR to run after midnight at 125 ml/hr. Vitals also to be taken q1hx6 hours. If vitals remain stable then vitals can be reduced to every 2 hours.
[2023-09-11] MEDS: ACETAMINOPHEN 325 MG TABLET 650 MG PO (21:16)
[2023-09-11] MEDS: HYDROcodone/acetaminophen (*CRX) 5-325 MG TABLET 1 TAB PO (23:58)
[2023-09-12] VITALS (68 sets, daily range): BP systolic 93–127; BP diastolic 48–84; PULSE 40–95; RESP 14–18; TEMP 36.5–36.9; O2SAT 93–100
--- NOTE | ~2023-09-12 | CT_ITS ---
EXAMINATION: CT abdomen pelvis w con DATE: 09/12/2023 15:36 INDICATION: Abdominal pain post D&C TECHNIQUE: Computed tomography (CT) of the abdomen and pelvis was performed with 100 mL Omnipaque-350 intravenous contrast. Automated exposure control and iterative reconstruction technique were employe d. The dose-length product was 1354.25 mGy-cm. COMPARISON: 07/19/2022 FINDINGS: Lung bases are clear. Heart size is normal. No pericardial or pleural effusion. 4 mm cyst at the dome of the liver. Small region of focal hepatic steatosis at the ligamentum teres. Gallbladder, spleen, pancreas, bilateral adrenal glands and kidneys are normal. Bowels including the appendix are normal. Gas and a Rust catheter within the decompressed bladder. There is thickening of the endometrial comp jose which measures 2.3 cm. There is a tiny focus of gas within the endometrial complex the lower uter ine segment consistent with reported recent D&C. There appears to be focal thickening of the myometri um at the fundus and could not exclude a myometrial perforation. There is a minimal amount of free fl uid in the deep pelvis. No abscess or free intraperineal gas. No pathologically enlarged abdominal or pelvic lymphadenopathy. Bones are unremarkable. IMPRESSION: 1. Thickening of the endometrial complex which could represent hematoma given the reported history of significant vaginal bleeding post D&C. There is focal thinning of the myometrium at the fundus likel y related to the D&C and could not absolutely exclude a perforation although there is only minimal fr ee fluid in the pelvis. Reviewed, dictated and finalized at location A. CLOSURE HOME INSPECTOR IMPRESSION: 1. Thickening of the endometrial complex which could represent hematoma given t he reported history of significant vaginal bleeding post D&C. There is focal th inning of the myometrium at the fundus likely related to the D&C and could not absolutely exclude a perforation although there is only minimal free fluid in t he pelvis.
[2023-09-12] MEDS: AMPICILLIN 2 GM/NS 100 ML 2 GM/100 ML BAG IVPB ×6 (00:07→23:00)
[2023-09-12] MEDS: LACTATED RINGERS 1,000 ML 125 ML IV CONT ×2 (00:07→08:41)
[2023-09-12 04:25] LABS: Basophils Percent Auto 0.1 % (0.2-1.2); Hematocrit 31.8 % (37.0-47.0); Hemoglobin 10.1 g/dL (12.0-15.0); Immature Granulocyte Absolute 0.02 K/mm3 (0.00-0.031); Immature Granulocyte Percent A 0.2 % (0-0.5); Lymphocytes Absolute Auto 1.14 K/mm3 (0.9-3.2); Lymphocytes Percent Auto 13.4 % (18.3-44.2); Mean Corpuscular HGB Conc 31.8 g/dl (32-36); Mean Corpuscular Hemoglobin 26.8 pg (26-34); Mean Corpuscular Volume 84.4 fl (80-100); Monocytes Absolute Auto 0.3 K/mm3 (0.1-0.6); Monocytes Percent Auto 3.4 % (2.6-8.5); Neutrophils Absolute Auto 7.1 K/mm3 (1.3-6.7); Neutrophils Percent Auto 82.9 % (45.5-73.1); Platelet Count Result 305 k/mm3 (150-375); Red Blood Count 3.77 M/mm3 (4.2-5.4); Red Cell Distribution Width 14.6 % (11.5-14.5); White Blood Count 8.5 K/mm3 (4.5-10.0)
[2023-09-12 04:42] LABS: Gentamicin Random 2.4 ug/mL (5.0-12.0)
[2023-09-12] MEDS: metroNIDAZOLE 500 MG/ISO 100ML 500 MG/100 ML BAG 100 MG IVPB ×2 (04:50→17:20)
[2023-09-12] MEDS: ACETAMINOPHEN 325 MG TABLET 650 MG PO ×2 (08:26→13:57)
--- NOTE | 2023-09-12 08:30 | PM.OBPNVD ---
OB - PN: Subj Subjective Date/time seen: 09/12/23 08:30 Interval history: Patient is weak, fatigued, denies fever or chills, denies abdominal pain, hungry OB - PN: Obj Data Labs 09/12/23 03:59 09/11/23 17:28 Labs: Laboratory Results - last 24 hr 09/11/23 09/11/23 09/11/23 13:48 17:26 17:28 WBC 5.9 6.3 RBC 3.90 L 3.11 L Hgb 10.6 L 8.4 L Hct 33.4 L 27.6 L MCV 85.6 88.7 MCH 27.2 27.0 MCHC 31.7 L 30.4 L RDW 14.5 14.4 Plt Count 390 H 324 MPV 9.2 9.6 Immature Gran % (Auto) 0.2 0.3 Neut % (Auto) 57.6 49.4 Lymph % (Auto) 31.8 37.7 [place] % (Auto) 6.0 8.2 Eos % (Auto) 3.9 4.1 Baso % (Auto) 0.5 0.3 Lymph # (Auto) 1.87 2.38 [place] # (Auto) 0.4 0.5 Eos # (Auto) 0.2 0.3 Baso # (Auto) 0.0 0.0 Abs Immat Gran (auto) 0.01 0.02 Absolute Neuts (auto) 3.4 3.1 Absolute Nucleated RBC 0.0 0.0 Nucleated RBC % 0.0 0.0 PT 14.0 INR 1.0 APTT 26.0 Fibrinogen 369 D-Dimer 1.16 H Sodium 140 139 Potassium 4.3 3.7 Chloride 109 H 111 H Carbon Dioxide 21 L 22 Anion Gap 10 6 L BUN 11 10 Creatinine 0.70 0.70 Estim Creat Clear Calc 147 147 Estimated GFR > 60 > 60 Glucose 90 92 Calcium 9.3 8.2 L Total Bilirubin 0.5 0.3 AST 47 H 33 ALT 37 H 28 Alkaline Phosphatase 113 98 Total Protein 8.0 6.0 L Albumin 4.4 3.1 L Random Gentamicin Blood Type O Positive Antibody Screen Negative Crossmatch See Detail 09/12/23 03:59 WBC 8.5 RBC 3.77 L Hgb 10.1 L Hct 31.8 L MCV 84.4 MCH 26.8 MCHC 31.8 L RDW 14.6 H Plt Count 305 MPV 9.0 Immature Gran % (Auto) 0.2 Neut % (Auto) 82.9 H Lymph % (Auto) 13.4 L [place] % (Auto) 3.4 Eos % (Auto) 0.0 Baso % (Auto) 0.1 L Lymph # (Auto) 1.14 [place] # (Auto) 0.3 Eos # (Auto) 0.0 Baso # (Auto) 0.0 Abs Immat Gran (auto) 0.02 Absolute Neuts (auto) 7.1 H Absolute Nucleated RBC 0.0 Nucleated RBC % 0.0 PT INR APTT Fibrinogen D-Dimer Sodium Potassium Chloride Carbon Dioxide Anion Gap BUN Creatinine Estim Creat Clear Calc Estimated GFR Glucose Calcium Total Bilirubin AST ALT Alkaline Phosphatase Total Protein Albumin Random Gentamicin 2.4 L Blood Type Antibody Screen Crossmatch OB - PN A/P Assessment and Plan (1) hemorrhage: Code(s): O72.1 - Other immediate hemorrhage Status: Acute (2) Retained products of conception: Status: Acute (3) Endometritis: Code(s): N71.9 - Inflammatory disease of uterus, unspecified Status: Acute Plan 27-year-old female with hemorrhage, retained products conception, endometritis. Massive hemorrhage at the time of D and C, yesterday- 2nd D and C. Endometritis presents at 1st D&C. Likely subclinical at this time. Being treated with triple antibiotics, had the Daksha hemorrhage device placed at the time of D& C. It was effective. Was withdrawn this morning. There was question of perforation and possible hernia of the omentum or intestine into the uterine defect With withdrawal the Daksha.. Will observe for 24 hours continue IV antibiotics. Time Spent With Patient Time: Total time spent is greater than 50% in coordination of care (as documented) at patient's floor/unit and/or counseling patient: Exam Const: General: cooperative, healthy appearing, comfortable and no acute distress Orientation/consciousness: oriented to person, oriented to place and oriented to time HENMT: Head: normal to inspection Ears: external ears normal Face/Nose/Sinus: Normal external nose present and normal facial exam Face and sinus: normal facial exam Eyes: General: appearance normal, both eyes and all related structures Neck: Neck: normal visual inspection, trachea midline and supple Resp: Auscultation: clear to auscultation bilaterally, no crackles, no rales, no rhonchi and no
--- NOTE | 2023-09-12 08:49 | PC.NURSE ---
Dr. Yancey, Brandy Molina CNM, and Araceli quintana CNM at bedside to remove HUDSON. Dr. Yancey okay with patient eating breakfast and to continue antibiotics, draw CBC at 1500. Dr. Yancey notified of patient low heart rate.
[2023-09-12 15:10] LABS: Basophils Percent Auto 0.4 % (0.2-1.2); Eosinophils Absolute Auto 0.1 K/mm3 (0-0.3); Eosinophils Percent Auto 0.7 % (0-4.4); Hematocrit 29.7 % (37.0-47.0); Hemoglobin 9.3 g/dL (12.0-15.0); Immature Granulocyte Absolute 0.01 K/mm3 (0.00-0.031); Immature Granulocyte Percent A 0.1 % (0-0.5); Lymphocytes Absolute Auto 1.95 K/mm3 (0.9-3.2); Lymphocytes Percent Auto 27.6 % (18.3-44.2); Mean Corpuscular HGB Conc 31.3 g/dl (32-36); Mean Corpuscular Hemoglobin 26.8 pg (26-34); Mean Corpuscular Volume 85.6 fl (80-100); Mean Platelet Volume 8.7 fl (7.4-10.4); Monocytes Absolute Auto 0.4 K/mm3 (0.1-0.6); Monocytes Percent Auto 5.8 % (2.6-8.5); Neutrophils Absolute Auto 4.6 K/mm3 (1.3-6.7); Neutrophils Percent Auto 65.4 % (45.5-73.1); Platelet Count Result 298 k/mm3 (150-375); Red Blood Count 3.47 M/mm3 (4.2-5.4); White Blood Count 7.1 K/mm3 (4.5-10.0)
--- NOTE | 2023-09-12 15:15 | PC.NURSE ---
Called Dr. Yancey per Brandy Molina, BRAD request. Pt complaining of increased pain in last [address] for stat, due to increased pain.
--- NOTE | 2023-09-12 16:03 | PM.OBPNVD ---
OB - PN: Subj Subjective Date/time seen: 09/12/23 16:03 Reports worsening abdominal /Pelvic pressure / pain. pressure at times sharp. Constant. No nausea, vomiting, fever, chills. Interval history: Patient is weak, fatigued, denies fever or chills, denies abdominal pain, hungry OB - PN: Obj Data Labs 09/12/23 15:00 09/11/23 17:28 Labs: Laboratory Results - last 24 hr 09/11/23 09/11/23 09/12/23 17:26 17:28 03:59 WBC 6.3 8.5 RBC 3.11 L 3.77 L Hgb 8.4 L 10.1 L Hct 27.6 L 31.8 L MCV 88.7 84.4 MCH 27.0 26.8 MCHC 30.4 L 31.8 L RDW 14.4 14.6 H Plt Count 324 305 MPV 9.6 9.0 Immature Gran % (Auto) 0.3 0.2 Neut % (Auto) 49.4 82.9 H Lymph % (Auto) 37.7 13.4 L [place] % (Auto) 8.2 3.4 Eos % (Auto) 4.1 0.0 Baso % (Auto) 0.3 0.1 L Lymph # (Auto) 2.38 1.14 [place] # (Auto) 0.5 0.3 Eos # (Auto) 0.3 0.0 Baso # (Auto) 0.0 0.0 Abs Immat Gran (auto) 0.02 0.02 Absolute Neuts (auto) 3.1 7.1 H Absolute Nucleated RBC 0.0 0.0 Nucleated RBC % 0.0 0.0 PT 14.0 INR 1.0 APTT 26.0 Fibrinogen 369 D-Dimer 1.16 H Sodium 139 Potassium 3.7 Chloride 111 H Carbon Dioxide 22 Anion Gap 6 L BUN 10 Creatinine 0.70 Estim Creat Clear Calc 147 Estimated GFR > 60 Glucose 92 Calcium 8.2 L Total Bilirubin 0.3 AST 33 ALT 28 Alkaline Phosphatase 98 Total Protein 6.0 L Albumin 3.1 L Random Gentamicin 2.4 L Blood Type O Positive Antibody Screen Negative Crossmatch See Detail 09/12/23 15:00 WBC 7.1 RBC 3.47 L Hgb 9.3 L Hct 29.7 L MCV 85.6 MCH 26.8 MCHC 31.3 L RDW 15.0 H Plt Count 298 MPV 8.7 Immature Gran % (Auto) 0.1 Neut % (Auto) 65.4 Lymph % (Auto) 27.6 [place] % (Auto) 5.8 Eos % (Auto) 0.7 Baso % (Auto) 0.4 Lymph # (Auto) 1.95 [place] # (Auto) 0.4 Eos # (Auto) 0.1 Baso # (Auto) 0.0 Abs Immat Gran (auto) 0.01 Absolute Neuts (auto) 4.6 Absolute Nucleated RBC 0.0 Nucleated RBC % 0.0 PT INR APTT Fibrinogen D-Dimer Sodium Potassium Chloride Carbon Dioxide Anion Gap BUN Creatinine Estim Creat Clear Calc Estimated GFR Glucose Calcium Total Bilirubin AST ALT Alkaline Phosphatase Total Protein Albumin Random Gentamicin Blood Type Antibody Screen Crossmatch Imaging Radiologist's impression: Impressions Abdomen/Pelvis CT 09/12/23 15:45 IMPRESSION: 1. Thickening of the endometrial complex which could represent hematoma given the reported history of significant vaginal bleeding post D&C. There is focal thinning of the myometrium at the fundus likely related to the D&C and could not absolutely exclude a perforation although there is only minimal free fluid in the pelvis. OB - PN A/P Assessment and Plan (1) hemorrhage: Code(s): O72.1 - Other immediate hemorrhage Status: Acute (2) Combined abdominal and pelvic pain: Code(s): R10.9 - Unspecified abdominal pain; R10.2 - Pelvic and perineal pain Status: Acute Plan 27-year-old, status hemorrhage, complicated D&C with hemorrhage. Daksha inserted and removed today. gradual onset abdominal pelvic pain. CT scan was performed and it was significant only for a small fluid collection in the pelvis. Continue observation, pain management. Time Spent With Patient Time: Total time spent is greater than 50% in coordination of care (as documented) at patient's floor/unit and/or counseling patient: Exam Const: General: cooperative, healthy appearing, comfortable and no acute distress Orientation/consciousness: oriented to person, oriented to place and oriented to time HENMT: Head: normal to inspection Ears: external ears normal Face/Nose/Sinus: Normal external nose present and normal facial exam Face and sinus: normal facial exam Eyes: General: appearance normal, both eyes and all relate
--- NOTE | 2023-09-12 16:05 | PC.NURSE ---
Brandy Molina CNM called to bedside from on unit. Pt complaining of increased abdominal pain and pressure. Pt assessed and orders received.
--- NOTE | 2023-09-12 16:54 | PC.NURSE ---
1640- patient sleeping at this time
--- NOTE | 2023-09-12 17:31 | PC.NURSE ---
1527- aleman catheter removed. Minimal pain at this time.
[2023-09-13] VITALS (7 sets, daily range): BP systolic 102–107; BP diastolic 40–48; PULSE 43–83; RESP 18; TEMP 36.4–36.6; O2SAT 96–100
[2023-09-13] MEDS: AMPICILLIN 2 GM/NS 100 ML 2 GM/100 ML BAG IVPB ×2 (03:15→07:31)
[2023-09-13] MEDS: LACTATED RINGERS 1,000 ML 125 ML IV CONT (03:16)
--- NOTE | 2023-09-13 03:34 | PC.NURSE ---
Upon arrival to room baby was in bed with mom sleeping. Rn woke Mom up and educated on safe sleep and baby needing to be in the crib. Mom verbalized understanding of safe sleep
[2023-09-13] MEDS: metroNIDAZOLE 500 MG/ISO 100ML 500 MG/100 ML BAG 100 MG IVPB (05:28)
--- NOTE | 2023-09-13 05:30 | PC.NURSE ---
Upon arrival to room baby was in bed with mom sleeping. Rn woke Mom up and educated on safe sleep and baby needing to be in the crib. Mom verbalized understanding of safe sleep with baby. Baby placed in crib by mom before RN left room
[2023-09-13 06:10] LABS: Hematocrit 26.3 % (37.0-47.0); Hemoglobin 8.3 g/dL (12.0-15.0); Mean Corpuscular HGB Conc 31.6 g/dl (32-36); Mean Corpuscular Hemoglobin 27.4 pg (26-34); Mean Corpuscular Volume 86.8 fl (80-100); Mean Platelet Volume 8.9 fl (7.4-10.4); Platelet Count Result 311 k/mm3 (150-375); Red Blood Count 3.03 M/mm3 (4.2-5.4); Red Cell Distribution Width 15.2 % (11.5-14.5); White Blood Count 5.7 K/mm3 (4.5-10.0)
--- NOTE | 2023-09-13 10:58 | PM.OBPNVD ---
OB - PN: Subj Subjective Date/time seen: 09/13/23 10:58 Resolution of bleeding, no nausea, vomiting, fever, chills. No abdominal pain. Interval history: Patient is weak, fatigued, denies fever or chills, denies abdominal pain, hungry OB - PN: Obj Data Labs 09/13/23 06:02 09/11/23 17:28 Labs: Laboratory Results - last 24 hr 09/12/23 09/13/23 15:00 06:02 WBC 7.1 5.7 RBC 3.47 L 3.03 L Hgb 9.3 L 8.3 L Hct 29.7 L 26.3 L MCV 85.6 86.8 MCH 26.8 27.4 MCHC 31.3 L 31.6 L RDW 15.0 H 15.2 H Plt Count 298 311 MPV 8.7 8.9 Immature Gran % (Auto) 0.1 Neut % (Auto) 65.4 Lymph % (Auto) 27.6 [place] % (Auto) 5.8 Eos % (Auto) 0.7 Baso % (Auto) 0.4 Lymph # (Auto) 1.95 [place] # (Auto) 0.4 Eos # (Auto) 0.1 Baso # (Auto) 0.0 Abs Immat Gran (auto) 0.01 Absolute Neuts (auto) 4.6 Absolute Nucleated RBC 0.0 Nucleated RBC % 0.0 Imaging Radiologist's impression: Impressions Abdomen/Pelvis CT 09/12/23 15:45 IMPRESSION: 1. Thickening of the endometrial complex which could represent hematoma given the reported history of significant vaginal bleeding post D&C. There is focal thinning of the myometrium at the fundus likely related to the D&C and could not absolutely exclude a perforation although there is only minimal free fluid in the pelvis. OB - PN A/P Assessment and Plan (1) Endometritis: Code(s): N71.9 - Inflammatory disease of uterus, unspecified Status: Acute (2) hemorrhage: Code(s): O72.1 - Other immediate hemorrhage Status: Acute (3) Retained products of conception: Status: Acute Plan day 14., postop day 2. Vaginal and D&C. She is doing well. She had some hemorrhage or some intra operative hemorrhage with the D&C. She received multiple units of blood, FFP,, fluid resuscitation intraoperatively. She is been stable since. Daksha was placed and removed. CT was performed that showed a small collection of blood in the pelvis. Time Spent With Patient Time: Total time spent is greater than 50% in coordination of care (as documented) at patient's floor/unit and/or counseling patient: Exam Const: General: cooperative, healthy appearing, comfortable and no acute distress Resp: Auscultation: no crackles, no rales, no rhonchi and no wheezes Cardio: Rhythm: regular rhythm Heart sounds: no click and no murmurs GI: Inspection: non-distended Auscultation: normal bowel sounds Extrem: General: normal to inspection, no pedal edema and no calf tenderness
--- NOTE | 2023-09-13 11:12 | PM.DS ---
DS: Admitting Diagnosis Discharge Date September 13, 2023 Admitting Diagnosis hemorrhage, endometritis DS: Discharge Diagnosis Discharge Diagnosis (1) hemorrhage: Code(s): O72.1 - Other immediate hemorrhage Status: Acute (2) Endometritis: Code(s): N71.9 - Inflammatory disease of uterus, unspecified Status: Acute DS: Summary Hospital Course Hospital Course: 28-year-old female who was admitted for endometritis and hemorrhage. Retained products possibly and clots within the intrauterine cavity. D&C was performed. Intra operative hemorrhage occurred. She lost close to 2 units of blood. Blood and fluid resuscitation was performed. Daksha was used and left in 12 hours. She was given IV antibiotics throughout her stay here. She was discharged home with oral antibiotics. She was discharged home on hospital day Two. Time Spent with Patient Time attestation: Total time spent providing and/or coordinating discharge services: DS: Data Data Completed and Pending Pending studies at discharge: Pending at discharge 09/11/23 16:23 Surgical [PTH] Routine Labs on day of discharge: Labs from last 24 hours 09/13/23 09/12/23 06:02 15:00 WBC 5.7 7.1 RBC 3.03 L 3.47 L Hgb 8.3 L 9.3 L Hct 26.3 L 29.7 L MCV 86.8 85.6 MCH 27.4 26.8 MCHC 31.6 L 31.3 L RDW 15.2 H 15.0 H Plt Count 311 298 MPV 8.9 8.7 Immature Gran % (Auto) 0.1 Neut % (Auto) 65.4 Lymph % (Auto) 27.6 [place] % (Auto) 5.8 Eos % (Auto) 0.7 Baso % (Auto) 0.4 Lymph # (Auto) 1.95 [place] # (Auto) 0.4 Eos # (Auto) 0.1 Baso # (Auto) 0.0 Abs Immat Gran (auto) 0.01 Absolute Neuts (auto) 4.6 Absolute Nucleated RBC 0.0 Nucleated RBC % 0.0 Discharge Plan Discharge Discharging Clinician: Juan David Yancey Patient Disposition: Home, Self-Care Activity: pelvic rest Diet: regular Patient Instructions: Antibiotic Form Stand Alone Forms: General Discharge Information Follow-up/Referrals: Juan David Yancey MD [Physician] - Discharge Medications: New metronidazole 500 mg tablet 500 mg PO Q12H Qty: 10 0RF Continued fluoxetine [Prozac] 20 mg capsule 60 mg PO DAILY lisdexamfetamine [Vyvanse] 50 mg capsule 50 mg PO DAILY ibuprofen 600 mg Tablet 600 mg PO Q6H PRN (Reason: Cramping) Qty: 30 0RF 28-800 mg-mcg Tablet 1 tablet PO DAILY Date of admission: 09/12/23 18:03 Primary Care Provider: Fiona,Gerry Trujillo Admitting Provider: Juan David Yancey Attending physician on admission: Juan David Yancey Condition: Stable
== END 2023-09-13 11:50 | disposition home or self-care (01) | DRG 548 ==
PROVIDERS: Admitting Provider Obstetrics & Gynecology; PCP Family Medicine; Visit Provider Obstetrics & Gynecology
PROC: 10D17ZZ Extraction of Products of Conception, Retained, Via Natural or Artificial Opening (ICD-10-PCS; principal; 2023-09-11 15:00)
DX: O72.1 Other immediate postpartum hemorrhage (principal); O72.2 Delayed and secondary postpartum hemorrhage; N71.9 Inflammatory disease of uterus, unspecified; N99.61 Intraoperative hemorrhage and hematoma of a genitourinary system organ or structure complicating a genitourinary system procedure; E66.9 Obesity, unspecified; G90.A Postural orthostatic tachycardia syndrome [POTS]; F41.9 Anxiety disorder, unspecified; F32.A Depression, unspecified; K21.9 Gastro-esophageal reflux disease without esophagitis
CPT/HCPCS: 36415; 36430; 74177; 80053; 80170; 85025; 85027; 85380; 85384; 85610; 85730; 86850; 86900; 86901; 86920; 88305; A9270; G0378; G0379; J0290; J0330; J0461; J1100; J1580; J1596; J1836; J2210; J2250; J2371; J2405; J2704; J3010; J7050; J7120; P9016; P9017; Q9967

== ENCOUNTER 2023-10-21 00:41 | Day surgery (SDC) | payer OTHER, SELFPAY ==
[2023-10-13 14:36] VITALS: BMI 33.0
--- NOTE | 2023-10-13 14:49 | PC.NURSE ---
Report to the Outpatient Waiting Room, entrance under the green pavilion located off [facility], at 0700 on 10/21/23. Planned Procedure Time: 0900. Time changes happen often and if your time is changed the preop area will call you the afternoon before. - You and your visitor will be asked to self-screen and do not enter if you have any COVID symptoms. - A mask is optional within the hospital at this time. Patients may have clear liquids (water, carbonated beverages, clear teas, apple juice) until 3 hours prior to surgery with a maximum of 20 ounces. - No food from midnight until time of surgery Take the following medications with a SIP of water the morning of surgery: Prozac/Vyvanase DO NOT STOP ANY OF YOUR OTHER PRESCRIPTION MEDICATIONS PRIOR TO SURGERY ?EXCEPT THE FOLLOWING Medications to discontinue per physician vitamins Date to take last dose 3 days prior Please no make-up, nail macedonian, hairspray, perfume, deodorant, or body powder the day of surgery. No jewelry (including any body piercings) or valuables the day of surgery, leave them at home. Please take a shower or bath the night before, or the morning of, surgery with an antibacterial soap. Wear comfortable, loose fitting clothing. - Jewelry must be removed prior to entering the operating room. Rings and piercings that are not removed may be cut off. - The hospital will not accept responsibility for valuables. - Please leave all valuables, including medications, at home the day of surgery. If you are going home after surgery, a licensed flatbed driver must drive you home. - NO public transportation without another adult if you receive anesthesia. - We recommend that an adult stay with you for 24 hours following discharge. - We also recommend that you do not drive, make important decision, drink alcoholic beverages, or take any drugs that were not prescribed by your health care provider for at least 24 hours after your discharge time. Follow any additional instructions given to you from your surgeon. If you or anyone in your household have experienced Covid symptoms in the past week, please notify your surgeon or the nurse liaison at the phone number below for possible testing. Telephone instructions given to patient and asked if any additional questions and then verbalized understanding. Patient advised to call surgeon office or pre surgery nurse liaison [phone] if any additional questions.
[2023-10-21] VITALS (9 sets, daily range): BP systolic 105–143; BP diastolic 58–79; PULSE 63–113; RESP 12–20; TEMP 36.2–36.6; O2SAT 97–100
[2023-10-21] MEDS: ACETAMINOPHEN 500 MG TABLET 1000 MG PO (07:09)
[2023-10-21] MEDS: LACTATED RINGERS 1,000 ML 30 ML IV CONT ×2 (07:39→11:39)
[2023-10-21] MEDS: KETOROLAC 15 MG/ML VIAL (*BKC) IV PUSH (07:40)
[2023-10-21 07:44] LABS: Hematocrit 34.2 % (37.0-47.0); Hemoglobin 10.7 g/dL (12.0-15.0)
--- NOTE | 2023-10-21 08:59 | WPDHPUPDATE1 ---
History and Physical Update Update Date/Time: 10/21/23 08:59 History and Physical has been reviewed, including an updated exam of the patient. There are NO changes in the patient's condition. Risks, benefits, and alternatives have been discussed and questions answered. Patient agrees to proceed with procedure.
--- NOTE | 2023-10-21 09:23 | WPDANESEPPF ---
Anes - Initial Pre Proc Eval Procedure: Operation Date: 10/21/23 09:00 Proposed Procedures p Total Laparoscopic Hysterectomy with Bilateral Salpingectomy - Juan David Ynacey MD Date/Time: 10/21/23 09:23 Surgeon: Juan David Yancey MD Pre Op Diagnosis: menorrhagia Patient Data Age: 28 Gender: F Height: 1.85 m Weight: 108.4 kg Last Vital Signs Temp 97.2 F L 10/21/23 07:44 Pulse 78 10/21/23 07:44 Resp 16 10/21/23 07:44 BP 125/67 10/21/23 07:44 Pulse Ox 100 10/21/23 07:44 O2 Del Method Room Air 10/21/23 07:44 Allergies Allergy/AdvReac Type Severity Reaction Status Date / Time No Known Allergies Allergy Verified 10/21/23 07:06 Home Medications Medication Instructions Recorded Confirmed Type fluoxetine 20 mg capsule (Prozac) 60 mg PO DAILY 06/12/21 10/21/23 History lisdexamfetamine 50 mg capsule 50 mg PO DAILY 07/19/22 10/21/23 History (Vyvanse) vit no.133-ferrous 1 tablet PO DAILY 07/11/23 10/21/23 History fumarate 28 mg-folic acid 800 mcg tablet () ibuprofen 600 mg tablet 600 mg PO Q6H PRN Cramping #30 tabs 08/22/23 10/21/23 Rx Laboratory Tests 10/21/23 10/21/23 07:29 07:40 Hgb 10.7 L g/dL (12.0-15.0) Hct 34.2 L % (37.0-47.0) Blood Type O Positive Antibody Screen Negative Patient hx anesthesia problems: none Family hx anesthesia problems: none Results Review: All pre-operative results and documents have been reviewed as part of the pre-operative evaluation. [facility] Past Medical History Medical History ADHD Anxiety and depression GERD (gastroesophageal reflux disease) Obesity POTS (postural orthostatic tachycardia syndrome) PTSD (post-traumatic stress disorder) (vaginal after ) Surgical History Surgical History No pertinent past surgical history Family History Family History Father H/O heart bypass surgery Social History Social History Smoking status: Former smoker Second hand tobacco smoke exposure: No Additional smoking assessment comments: social smoker-last 10yrs ago Alcohol intake: current Drinks per week: 1 Alcohol use details: wine Substance use: never Substance use type: does not use Do You Feel Safe in your Home?: Yes Lack of Transportation: No Lack of Food: Never True Current Housing: I Have Housing Concerned About Future Housing: No Difficulty Paying Gas/Electric Bills: No Difficulty Paying for Meds: No Currently Unemployed: No Education: Trade/Vocational Certificate Difficulty w/ Childcare or Family Care: No Living arrangements: with family Gender identity (if verbalized by the patient): Female Sexual Orientation (if Verbalized by the Patient): Straight or Heterosexual Spiritual care concerns: No Anes - Eval Final PreProcedure Day of Procedure 10/21/23 09:23 Patient weight: obese Heart: regular rate and rhythm Lungs: clear to auscultation Airway: Mallampati scale class II Neurological: alert and oriented Last oral intake: >/= 8 hours ASA classification: II Emergent: no Anesthetic plan: proceed Anesthesia type and monitoring: general ETT and standard monitoring Results Review: All pre-operative results and documents have been reviewed as part of the pre-operative evaluation. Informed Consent: The patient's anesthetic plan and its attendant risks and benefits were discussed with the patient/family/POA. Questions were solicited and answers provided to the satisfaction of the patient/family/POA.
[2023-10-21] MEDS: ceFAZolin 2 GM/D5W 50 ML 2 GM/50 ML BAG IVPB (09:30)
--- NOTE | 2023-10-21 11:33 | W.PM.PROC2 ---
Procedure Note - Detailed Date of Procedure 10/21/23 Pre-op Diagnosis menorrhagia Post-op Diagnosis Same Procedure Performed Total laparoscopic hysterectomy. Surgeon Juan David Yancey MD Anesthesia General Indications Menorrhagia Findings Mildly enlarged uterus, very vascular pelvic sidewalls with large well-developed blood vessels. Normal-appearing fallopian tubes and ovaries. Description of Procedure This patient was taken to the operating room. She was prepped and draped in the dorsal lithotomy position after induction of general anesthesia. The uterine manipulator and Elena cup were placed. This was done with a speculum and tenaculum. The speculum was placed. The cervix was grasped with a tenaculum. The stay sutures were placed at 3 and 9:00 a.m.. The stay sutures of 0 Vicryl were brought through the appropriately sized Elena cup. The tip of the CALLY manipulator was placed in the intrauterine cavity. The cup was slid into place around the cervix and into the fornices. It was locked into place. The sutures were then wrapped around the handle and tied under tension. A 5 mm skin incision was made in the left upper quadrant the abdomen. A 5 mm trocar was inserted into the intrauterine cavity under direct visualization of the scope. Pneumoperitoneum was achieved. A left lower quadrant 11 mm incision was made with scalpel. An 11 mm trocar was inserted into the anterior abdominal cavity under direct visualization the scope. A 5 mm infraumbilical incision was made with a scalpel and a 5 mm trocar was inserted the intra-abdominal cavity under direct visualization of the scope. Bilateral ureteral lysis was performed. This was done from the pelvic brim down to the uterine artery. This was done with careful dissection using sharp and blunt dissection. The fallopian tubes were removed bilaterally. The mesosalpinx around the fallopian tubes were cauterized transected with LigaSure cautery. This was done in a bilateral fashion from the ovary to the uterine cornua. The fallopian tube was transected at the uterine cornu and amputated bilaterally. The tube was taken out the left lower quadrant trocar site. In a stepwise fashion along the lateral aspects of the uterus the round ligament and broad ligaments were cauterized transected down to the level of the uterine arteries. A bladder flap was created in the bladder was moved distally to the end of the cervix and over the Elena cup. The bilateral uterine arteries were cauterized and transected. Colpotomy was then performed. In a circumferential fashion the vagina was transected using unipolar cautery. The incision was made down on the Elena cup. when the colpotomy was completed, the uterus and cervix were taken out through the vagina. A pneumo occluder was placed in the vagina. The vaginal cuff was closed with a 0 V lock suture in a running fashion. The pelvis was irrigated with copious amounts antibiotic irrigation. The ureters were again examined and found to be intact and flowing freely under the uterine arteries into the bladder. The bladder was intact. It was examined directly. Cystoscopy was performed after administration of methylene blue. The cystoscope was inserted. Bladder was distended with fluid. The ureteric meatus was observed bilaterally. Blue fluid was seen to egress bilaterally. The bladder was drained and the cystoscope was withdrawn. The vagina was irrigated with Betadine solution after removal of the Pneumo occluder. The patient was taken to recovery room. She was stable condition. Sponge lap and needle counts were correct x2. Drains Yes Packing No Pathology Yes Complications No immediate complications Condition Stable Disposition Floor
[2023-10-21] MEDS: fentaNYL CITRATE INJ (*CRX) 100 MCG/2 ML VIAL 25 MCG IV PUSH ×3 (12:21→12:40)
--- NOTE | 2023-10-21 12:42 | SUR.PHASEI ---
1200 PT RECEIVED IN BED, RESTLESS ROLLING TO SIDE, ATTEMPTING TO ROLL TO ABD. REACHING FOR FACE, HAND HELD AWAY FROM FACE. PT MEDICATED BY WELDER GAS TUNGSTEN ARC WITH VERSED.
--- NOTE | 2023-10-21 12:57 | PC.NURSE ---
This patient, Martha Shields, was received from [PACU ] on 10/21/23 at 1257. Patient/family oriented to unit policies and routines
[2023-10-21] MEDS: DEXTROSE 5%/0.45% SOD CHL 1,000 ML 125 ML IV CONT (13:11)
[2023-10-21] MEDS: HYDROcodone/acetaminophen (*CRX) 10-325 MG TABLET 1 TAB PO ×3 (13:18→19:51)
[2023-10-21] MEDS: IBUPROFEN 600 MG TABLET PO (15:46)
[2023-10-22] MEDS: HYDROcodone/acetaminophen (*CRX) 10-325 MG TABLET 1 TAB PO ×2 (01:03→07:39)
[2023-10-22] MEDS: IBUPROFEN 600 MG TABLET PO ×2 (01:03→07:38)
[2023-10-22 04:07] VITALS: BP 103/60; PULSE 71; RESP 16; TEMP 36.7; O2SAT 96
--- NOTE | 2023-10-22 07:33 | PM.GYNPNOP ---
EMAIL SPECIALIST - A/P Postoperative Procedures: Procedures Operation Date: 10/21/23 09:00 Actual Procedure Side Surgeon p Total Laparoscopic Hysterectomy with Bilateral Salpingectomy Juan David Yancey MD Postoperative day: 1 Postoperative status: doing well Postoperative plan: see orders Time Spent With Patient Time: Total time spent is greater than 50% in coordination of care (as documented) at patient's floor/unit and/or counseling patient: Time with patient: less than 15 minutes EMAIL SPECIALIST- PN:Subj Post-Op Subjective Date/time seen: 10/22/23 07:33 Subjective: patient reports feeling better, patient has no complaints and pain is well controlled Exam Const: General: healthy appearing, comfortable and no acute distress Resp: Auscultation: clear to auscultation bilaterally, no rales, no rhonchi and no wheezes Cardio: Rate: regular rate Heart sounds: no click, no murmurs and no rubs GI: Inspection: non-distended Auscultation: normal bowel sounds Extrem: General: normal to inspection, no pedal edema and no calf tenderness EMAIL SPECIALIST - PN: Obj Data Vital Signs Vital Signs: Vital Signs - 24 hr 10/21/23 07:44 10/21/23 11:39 10/21/23 12:20 Temperature 97.2 F L 97.4 F L Pulse Rate 78 113 H 72 Respiratory Rate 16 20 20 Blood Pressure 125/67 143/79 H 105/68 Pulse Oximetry 100 100 97 Oxygen Delivery Room Air Simple Face Mask Room Air Oxygen Flow Rate 8 10/21/23 11:50 10/21/23 12:05 10/21/23 12:35 Temperature Pulse Rate 74 70 63 Respiratory Rate 19 18 12 Blood Pressure 123/64 129/70 106/58 L Pulse Oximetry 100 100 97 Oxygen Delivery Simple Face Mask Simple Face Mask Room Air Oxygen Flow Rate 8 4 10/21/23 13:00 10/21/23 16:01 10/21/23 19:37 Temperature 97.5 F L 97.4 F L 97.9 F Pulse Rate 67 91 75 Respiratory Rate 16 18 18 Blood Pressure 113/58 L 119/74 115/78 Pulse Oximetry 100 98 99 Oxygen Delivery Oxygen Flow Rate 10/22/23 04:07 Temperature 98.1 F Pulse Rate 71 Respiratory Rate 16 Blood Pressure 103/60 Pulse Oximetry 96 Oxygen Delivery Oxygen Flow Rate Intake/Output Intake/Output: Intake & Output 10/19/23 10/20/23 10/21/23 10/22/23 23:59 23:59 23:59 23:59 Intake Total 1800 Output Total 2165 500 Balance -365 -500 Meds/Results Medications: Active Medications Generic Name Dose Route Start Last Admin Trade Name Freq PRN Reason Stop Dose Admin Hydrocodone Bitart/Acetaminophen 1 tab 10/21/23 12:48 Hydrocodone/Acetaminophen (*Crx) 5-325 Mg Tablet PO Q3H PRN Pain Rated 5 or Less Hydrocodone Bitart/Acetaminophen 1 tab 10/21/23 12:48 10/22/23 01:03 Hydrocodone/Acetaminophen (*Crx) 10-325 Mg Tablet PO 1 tab Q3H PRN Administration Pain Rated 6 or Greater Fluoxetine HCl 60 mg 10/21/23 13:00 10/21/23 16:59 Fluoxetine Hcl 20 Mg Capsule PO Not Given DAILY CHRIS Dextrose/Sodium Chloride 1,000 mls @ 125 mls/hr 10/21/23 12:48 10/21/23 21:11 Dextrose 5% Sodium Chloride 0.45% IV CONT Infused .Q8H CHRIS Infusion Ibuprofen 600 mg 10/21/23 12:48 10/22/23 01:03 Ibuprofen 600 Mg Tablet PO 600 mg Q6H PRN Administration Cramping Ketorolac Tromethamine 30 mg 10/21/23 12:48 Ketorolac 30 Mg/Ml Vial (*Bkc) IV PUSH 10/26/23 12:47 Q6H PRN Pain Rated 4-6 Naloxone HCl 0.1 mg 10/21/23 12:48 Naloxone Hcl 0.4 Mg/Ml Vial IV PUSH Q2M PRN Respiratory rate less than 10 Ondansetron HCl 4 mg 10/21/23 12:48 Ondansetron Inj 4 Mg/2 Ml Vial IV PUSH Q6H PRN Nausea And Vomiting Simethicone 80 mg 10/21/23 12:48 10/21/23 14:12 Simethicone 80 Mg Tab.Chew PO Not Given [facility] Labs 10/21/23 07:29 Labs: Laboratory Results - last 24 hr 10/21/23 10/21/23 07:29 07:40 Hgb 10.7 L Hct 34.2 L Blood Type O Positive Antibody Screen Negative
[2023-10-22] MEDS: SIMETHICONE 80 MG TAB.CHEW PO (07:38)
[2023-10-22] MEDS: FLUoxetine HCL 20 MG CAPSULE 60 MG PO (07:38)
[2023-10-22 08:30] VITALS: BP 108/60; PULSE 64; RESP 16; TEMP 36.6; O2SAT 99
== END 2023-10-22 10:10 | disposition home or self-care (01) ==
LOC: ANHSURGERY 06:57 → ANHOB2 16:36
PROVIDERS: Anesthesiology; PCP Family Medicine; Visit Provider Obstetrics & Gynecology
PROC: 0UT9FZZ Resection of Uterus, Via Natural or Artificial Opening With Percutaneous Endoscopic Assistance (ICD-10-PCS; CPT 58571; principal; 2023-10-21 09:00)
DX: N92.0 Excessive and frequent menstruation with regular cycle (principal); F90.9 Attention-deficit hyperactivity disorder, unspecified type; F41.8 Other specified anxiety disorders; Z87.891 Personal history of nicotine dependence; E66.9 Obesity, unspecified; Z68.31 Body mass index [BMI] 31.0-31.9, adult
CPT/HCPCS: 58571; 36415; 85014; 85018; 86850; 86900; 86901; 88307; 99199; A9270; J0690; J1100; J1170; J1885; J2250; J2405; J2704; J3010; J7030; J7120; Q9968